=== PATIENT | female | born 1990 | race Caucasian/White ===

== ENCOUNTER 2024-10-31 16:06 | Outpatient (REF) | payer OTHER, SELFPAY ==
--- OUTSIDE RECORDS SUMMARY | 2024-10-31 16:13 | XMS_ITS | Encounter Summary ---
Author Organization [employer] Address [address] [facility] [address] [address] Care Team Providers Care Pipe Production Worker Name Role Phone Priya Capellan MD Primary Care Provider [phone]- [phone] Reason for Referral * Consultation (Routine) - Authorized Specialty Diagnoses / Procedures Referred By Contac t Referred To Contact Optometry Diagnoses Wears glasses Priya Capellan MD [address] [place] [address] Phone: tel: fax: [facility] OPTOMETRY [address] [place] [address] Phone: tel: fax: Referral ID Status Reason Start Date Expiration Date Visits Requested Visits Authorized [id number] Authorized Consult and Treat 10/31/2024 10/31/2025 1 1 Reason for Visit * Reason Comments CHW - New Patient Assistance Encounter Details Date Type Department Care Team (Latest Contact Info) Description 10/31/2024 11:00 AM EDT Office Visit [facility] MEDICINE [address] [place] [phone] Priya Capellan MD [address] [place] [phone] Mild intermittent asthma without complication (Primary Dx); Attention deficit hyperactivity disorder (ADHD), unspecified ADHD type; Gastroesophageal reflux disease, unspecified whether esophagitis present; PCOS (polycystic ovarian syndrome); Mood disorder (CMS/HCC); Family planning; Hearing loss, unspecified hearing loss type, unspecified laterality; Wears glasses; Routine screening for STI (sexually transmitted infection); Other specified health status Social History Tobacco Use Types Packs/Day Years Used Date Smoking Tobacco: Never Passive Smoke Exposure: Never Smokeless Tobacco: Never Tobacco Cessation:Counseling Given: Not Answered Depression Answer Date Recorded Patient Health Questionnaire-9 Score 24 10/31/2024 Patient Health Questionnaire-9 Score 24 10/31/2024 Last PHQ-9: Questionnaire Data Not on file 0 10/31/2024 Housing Stability Answer Date Recorded What is your housing situation today? I have housing today, but I am worried about losing housing in the future 10/31/[address] you li ve. Do you have problems with any of the following? Pests such as bugs, ants, or mice;Mold;Water leaks 10/31/2024 Food Insecurity Answer Date Recorded Within the past 12 months, y ou worried that your food would run out before you got money to buy more: Sometimes True 2024 Within the past 12 months,th e food you bought just didn't last and you didn't have enough money to get more: Sometimes True 10/31/2024 Transportation Answer Date Recorded In the past 12 months, has l ack of transportation kept you from medical appts, meetings, work or from getting things needed for daily living? Yes, it has kept me from non-medical meetings, work, or getting things that I need 10/31/2024 Utilities Answer Date Recorded In the past 12 months, has t he electric, gas, oil or water company threatened to shut off services in your home? Yes 10/31/2024 Depression Answer Date Recorded Patient Health Questionnaire-2 Score 5 10/31/2024 Internet Access Answer Date Recorded Internet Access Q1 Yes 10/31/2024 Internet Access Q2 Not on file 10/31/2024 Comments Unknown Sex and Gender Information Value Date Recorded Sex Assigned at Female 09/10/2024 2:57 PM EDT Legal Sex Female 2:54 PM EDT Gender Identity Female 09/10/2024 2:57 PM EDT Sexual Orientation Straight 10/23/2024 3 :55 PM EDT documented as of this encounter Last Filed Vital Signs Vital Sign Reading Time Taken Comments Blood Pressure 106/65 10/31/2024 10:54 AM EDT Pulse 60 10/31/2024 10:54 AM EDT Temperature 36.4 ??C (97.5 ??F) 10/31/2024 10:54 AM E DT Respiratory Rate 20 10/31/2024 10:54 AM EDT Oxygen Saturation 100% 10/31/2024 10:54 AM EDT Inhaled Oxygen Concentration - - Weight 52.2 kg (115 lb) 10/31/2024 10:54 AM EDT Height 160 cm (5' 3 ) 10/31/2024 10:54 AM EDT Body Mass Index 20.37 10/31/2024 10:54 AM EDT documented in this encounter Functional Status * Over the past 2 weeks, how often have you been bothered by any of the following problems? Question Answer Date of Assessment Author Patient Health Questionnaire-2 Score 5 10/16 12:12 PM EDT Neva Archer MA * Little interest or pleasure in doing things Answer Date of Assessment Author More than half the days 10/31/2024 12:12 PM EDT Neva Archer MA * Feeling down, depressed, or hopeless Answer Date of Assessment Author Nearly every day 10/31/2024 12:12 PM EDT Neva Archer MA * Trouble falling or staying asleep, or sleeping too much Answer Date of Assessment Author Nearly every day 10/31/2024 12:12 PM EDT Neva Archer MA * Feeling tired or having little energy Answer Date of Assessment Author More than half the days 10/31/2024 12:12 PM EDT Neva Archer MA * Poor appetite or overeating Answer Date of Assessment Author Nearly every day 10/31/2024 12:12 PM EDT Neva Archer MA * Feeling bad about yourself - or that you are a failure or have let yourself or your family down Answer Date of Assessment Author Nearly every day 10/31/2024 12:12 PM EDT Neva Archer MA * Trouble concentrating on things, such as reading the newspaper or watching television Answer Date of Assessment Author Nearly every day 10/31/2024 12:12 PM EDT Neva Archer MA * Moving or speaking so slowly that other people could have noticed? Or the opposite - being so fidgety or restless that you have been moving around a lot more than usual. Answer Date of Assessment Author Nearly every day 10/31/2024 12:12 PM EDT Neva Archer MA * Thoughts that you would be better off or hurting yourself in some way Answer Date of Assessment Author More than half the days 10/31/2024 12:12 PM EDT Neva Archer MA * Patient Health Questionnaire-9 Score Answer Date of Assessment Author 24 10/31/2024 12:12 PM EDT Neva Archer MA * How difficult have these problems made it for you to do your work, take care of things at home, or get along with other people? Answer Date of Assessment Author Very difficult 10/31/2024 12:12 PM EDT Neva Archer MA * Over the last 2 weeks, how often have you been bothered by any of the following problems? Question Answer Date of Assessment Author Feeling nervous, anxious, or on edge 3 10/16 12:13 PM EDT Neva Archer MA Not being able to stop or co ntrol worrying 3 10/31/2024 12:13 PM EDT Neva Archer MA Worrying too much about diff erent things 3 10/31/2024 12:13 PM EDT Neva Archer MA Trouble relaxing 3 10/31/2024 12:13 PM EDT Neva Archer MA Being so restless that it is hard to sit still 2 10/31/2024 12:13 PM EDT Neva Archer MA Becoming easily annoyed or irritable 3 10/16 12:13 PM EDT Neva Archer MA Feeling afraid as if somethi ng awful might happen 3 10/31/2024 12:13 PM EDT Neva Archer MA NITIN-7 Total Score 20 10/31/2024 12:13 PM EDT Neva Archer MA documented as of this encounter Miscellaneous Notes * Assessment & Plan Note - Sujey Goldstein - 10/31/2024 11:56 AM EDTAssociated Problem(s): Other specified health status -next comprehensive annual evaluation due after 10/31/25 -referred to [facility] 10/31/24 -dental home encouraged. -royce care proxy given and filed 10/31/24 * Assessment & Plan Note - Sujey Goldstein - 10/31/2024 11:56 AM EDTAssociated Problem(s): Mood disorder (CMS/HCC) Reports difficulty with mood, was on Prozac but had side effects and used to see a therapist. Has adeaf support group. -recommended searching for deaf therapist per pt's preference. * Assessment & Plan Note - Sujey Goldstein - 10/31/2024 11:55 AM EDTAssociated Problem(s): PCOS (polycystic ovarian syndrome) Per BEAM PRESS OPERATOR note from 12/29/20, dx'd with PCOS (irreg periods and multicystic ovaries on u/s). -ordered labs 10/31/24 * Assessment & Plan Note - Sujey Goldstein - 10/31/2024 11:55 AM EDTAssociated Problem(s): Gastroesophageal reflux disease famotidine (PEPCID) 20 MG tablet Take 20 mg by mouth 2 (two) times a day. (patient-reported) * Assessment & Plan Note - Sujey Goldstein - 10/31/2024 11:54 AM EDTAssociated Problem(s): Attention deficit hyperactivity disorder (ADHD) Since [age] yo. Not currently seeing a therapist. Not on any medications. Was recommended Buspirone 5mg previously. Agrees to try today. -prescribed busPIRone (Buspar) 5 MG 10/31/24 * Assessment & Plan Note - Sujey Goldstein - 10/31/2024 11:44 AM EDTAssociated Problem(s): Hearing loss Has implants. Does use [place] Sign Language. * Assessment & Plan Note - Sujey Goldstein - 10/31/2024 11:40 AM EDTAssociated Problem(s): Mild intermittent asthma without complication - continue albuterol 108 (90 Base) MCG/ACT inhaler * Assessment & Plan Note - Sujey Goldstein - 10/31/2024 11:27 AM EDTAssociated Problem(s): Family planning -pt does not desire within the next 12 months. -discussed efficacies, benefits and risks of available contraceptive means available including IUD,subdermal implantable device, injection, combination oral contraceptives, patch, vaginal ring and condoms. -patient declines. -indications for Prep discussed. -condoms offered. -Plan B offered, prescribed levonorgestrel (Plan B) 1.5 MG documented in this encounter Plan of Treatment Upcoming Encounters Date Type Department Care Team (Late st Contact Info) Description 12/17/2024 2:45 PM EDT Office Visit [facility] MEDICINE [address] [place] [phone] Priya Capellan MD [address] [place] [address] Scheduled Orders Name Type Priority Associated Diagnoses Orde r Schedule Testosterone, Total, males (Adult), IA Lab Routine PCOS (polycystic ovarian syndrome) Expected: 10/31/2024, Expires: 10/31/2025 DHEA Sulfate Lab Routine PCOS (polycystic ovarian syndrome) Expected: 10/31/2024 (Approximate), Expires: 10/31/2025 Chlamydia/N. Gonorrhoeae RNA, TMA, Vagina Microbiology Routine Routine screening for STI (sexually transmitted infection) Ordered: 10/31/2024 HIV-1/2 Antigen and Antibodies, Fourth Generation, with Reflexes Lab Routine Routine screening for STI (sexually transmitted infection) Expected: 10/31/2024 (Approximate), Expires: 10/31/2025 Hepatitis C Antibody with Reflex to HCV, RNA, Quantitative, Real-Time PCR Lab Routine Routine screening for STI (sexually transmitted infection) Expected: 10/31/2024 (Approximate), Expires: 10/31/2025 Syphilis Screen Lab Routine Routine screening for STI (sexually transmitted infection) Expected: 10/31/2024 (Approximate), Expires: 10/31/2025 Hepatic Function Panel Lab Routine PCOS (polycystic ovarian syndrome) Expected: 10/31/2024, Expires: 10/31/2025 Lipid Panel, Standard Lab Routine PCOS (polycystic ovarian syndrome) Expected: 10/31/2024, Expires: 10/31/2025 Basic Metabolic Panel Lab Routine PCOS (polycystic ovarian syndrome) Expected: 10/31/2024, Expires: 10/31/2025 TSH with Reflex to Free T4 Lab Routine PCOS (polycystic ovarian syndrome) Expected: 10/31/2024 (Approximate), Expires: 10/31/2025 CBC auto differential Lab Routine PCOS (polycystic ovarian syndrome) Expected: 10/31/2024, Expires: 10/31/2025 Vitamin D, 25-Hydroxy, Total, Immunoassay Lab Routine PCOS (polycystic ovarian syndrome) Expected: 10/31/2024 (Approximate), Expires: 10/31/2025 Scheduled Referrals Name Type Priority Associated Diagnoses Orde r Schedule Referral to [facility] Eye Care Outpatient Referral Routine Wears glasses Expected: 10/31/2024 (Approximate), Expires: 10/31/2025 documented as of this encounter Visit Diagnoses Diagnosis Mild intermittent asthma without complication- Primary Attention deficit hyperactivity disorder (ADHD), unspecified ADHD type Gastroesophageal reflux disease, unspecified whether esophagitis present PCOS (polycystic ovarian syndrome) Polycystic ovaries Mood disorder (CMS/HCC) Unspecified episodic mood disorder Family planning Other general counseling and advice for contraceptive management Hearing loss, unspecified hearing loss type, unspecified laterality Wears glasses Other specified conditions influencing health status Routine screening for STI (sexually transmitted infection) Screening examination for venereal disease Other specified health status documented in this encounter Additional Health Concerns Assessment Noted Time PHQ-9 Depression Total Score: 24 025 12:12 PM EDT documented as of this encounter Care Teams Pipe Production Worker Relationship Specialty Start Date End Date Priya Capellan MD [address] [place] [address] PCP - General Family Medicine 09/11/24 documented as of this encounter
--- OUTSIDE RECORDS SUMMARY | 2024-10-31 16:13 | XMS_ITS | Clinical Summary ---
Author Organization [employer] Address [address] [place] [address] Care Team Providers Care Smalltalk Developer Name Role Phone Priya Capellan MD Primary Care Provider +1- [phone] Allergies No known active allergies Medications albuterol 108 (90 Base) MCG/ACT inhalerIndication s:Mild intermittent asthma without complication Inhale 2 puffs every 4 (four) hours if needed for wheezing. 18 g 5 11/01/19 26 Active levonorgestrel (Plan B) 1.5 MG tabletIndications :Family planning Take 0.5 tablets (0.75 mg) by mouth every 12 (twelve) hours for 1 day. 1 tablet 5 11/02/19 25 Active busPIRone (Buspar) 5 MG tablet Take 1 tablet (5 mg) by mouth 2 times daily. 60 tablet 3 5 11/01/19 26 Active Active Problems Problem Noted Date Diagnosed Date PCOS (polycystic ovarian syndrome) 10/31/2024 Overview (10/31/2024): Per DRYWALL INSTALLER note from 12/29/20, dx'd with PCOS (irreg periods and multicystic ovaries on u/s). -ordered labs 10/31/24 Assessment & Plan (10/31/2024 11:55 AM EDT): Per DRYWALL INSTALLER note from 12/29/20, dx'd with PCOS (irreg periods and multicystic ovaries on u/s). -ordered labs 10/31/24 Hearing loss 10/31/2024 Overview (10/31/2024): Has implants. Does use Beninese Sign Language. Assessment & Plan (10/31/2024 11:44 AM EDT): Has implants. Does use [place]inese Sign Language. Family planning 10/31/2024 Overview (10/31/2024): -pt does not desire within the next 12 months. -discussed efficacies, benefits and risks of available contraceptive means available including IUD, subdermal implantable device, injection, combination oral contraceptives, patch, vaginal ring and condoms. -patient declines. -indications for Prep discussed. -condoms offered. -Plan B offered, prescribed levonorgestrel (Plan B) 1.5 MG Assessment & Plan (10/31/2024 11:55 AM EDT): -pt does not desire within the next 12 months. -discussed efficacies, benefits and risks of available contraceptive means available including IUD, subdermal implantable device, injection, combination oral contraceptives, patch, vaginal ring and condoms. -patient declines. -indications for Prep discussed. -condoms offered. -Plan B offered, prescribed levonorgestrel (Plan B) 1.5 MG Gastroesophageal reflux disease 10/31/2024 Overview (10/31/2024): famotidine (PEPCID) 20 MG tablet Take 20 mg by mouth 2 (two) times a day. (patient-reported) Assessment & Plan (10/31/2024 11:55 AM EDT): famotidine (PEPCID) 20 MG tablet Take 20 mg by mouth 2 (two) times a day. (patient-reported) Chronic pain of right knee 10/31/2024 Other specified health status 10/31/2024 Overview (10/31/2024): -next comprehensive annual evaluation due after 10/31/25 -referred to [facility] 10/31/24 -dental home encouraged. -royce care proxy given and filed 10/31/24 Assessment & Plan (10/31/2024 11:56 AM EDT): -next comprehensive annual evaluation due after 10/31/25 -referred to [facility] 10/31/24 -dental home encouraged. -royce care proxy given and filed 10/31/24 Attention deficit hyperactivity disorder (ADHD) 10/31/2024 Overview (10/31/2024): Since 6/7 yo. Not currently seeing a therapist. Not on any medications. Was recommended Buspirone 5mg previously. Agrees to try today. -prescribed busPIRone (Buspar) 5 MG 10/31/24 Assessment & Plan (10/31/2024 11:54 AM EDT): Since 6/7 yo. Not currently seeing a therapist. Not on any medications. Was recommended Buspirone 5mg previously. Agrees to try today. -prescribed busPIRone (Buspar) 5 MG 10/31/24 Mild intermittent asthma without complication Overview (10/31/2024): - continue albuterol 108 (90 Base) MCG/ACT inhaler Assessment & Plan (10/31/2024 11:40 AM EDT): - continue albuterol 108 (90 Base) MCG/ACT inhaler Mood disorder 10/31/2024 Overview (10/31/2024): Reports difficulty with mood, was on Prozac but had side effects and used to see a therapist. Has a deaf support group. -recommended searching for deaf therapist per pt's preference. Assessment & Plan (10/31/2024 11:56 AM EDT): Reports difficulty with mood, was on Prozac but had side effects and used to see a therapist. Has a deaf support group. -recommended searching for deaf therapist per pt's preference. Encounters Date Type Department Care Team Description 10/31/2024 11:00 AM EDT Office Visit [address] [address] Priya Capellan MD Mild intermittent asthma without complication (Primary Dx); Attention deficit hyperactivity disorder (ADHD), unspecified ADHD type; Gastroesophageal reflux disease, unspecified whether esophagitis present; PCOS (polycystic ovarian syndrome); Mood disorder (CMS/HCC); Family planning; Hearing loss, unspecified hearing loss type, unspecified laterality; Wears glasses; Routine screening for STI (sexually transmitted infection); Other specified health status 10/31/2024 Patient Outreach [address] [address] Priya Caepllan MD Care Coordination ([facility] outreach for SDOH PT-1 and food needs-LVM ) 10/31/2024 Travel 10/30/[address] [address] Priya Capellan MD CHART PREP 10/24/2024 Patient Outreach [facility] [address] [place], [place] [phone] Priya Capellan MD Pre-visit Planning ([facility] unable to reach [facility]) 10/13/[address] [address] Yany Duran RN 09/29/[address] [phone] Priya Capellan MD Appt cancel 10/30/2024 (I book the appt on 10/31/2024 at 10:45 am for New Patient. I will sent a reminder.) 09/29/2024 Travel 09/10/[address] [address] José Blue MD New Patient Request from Last 3 Months Social History Tobacco Use Types Packs/Day Years [...] 2:57 PM EDT Sexual Orientation Straight 10/23/2024 3: 55 PM EDT Last Filed Vital Signs Vital Sign Reading [...] Mass Index 20.37 10/31/2024 10:54 AM EDT Plan of Treatment Upcoming Encounters Date Type Department Care Team (Late st Contact Info) Description 12/17/2024 2:45 PM EDT Office Visit [facility] [address] [facility] [place] [address] Priya [facility]an MD [address] [facility] [place] [address] Health Maintenance Due Date Last Done Comments HIV Screening 1992 Alcohol/Substance Use Screening 2004 Family Planning (PISQ) 11/24/2007 Hepatitis C Screening 2010 Hepatitis B Vaccines (1 of 3 - 19+ 3-dose series) 11/24/2011 Pneumococcal Vaccine: Pediatrics (0 to 5 Years) and At-Risk Patients (6 to 49) Years) (1 of 2 - PCV) 11/24/2011 Pap Smear 2013 Cervical Cancer Screening 2022 HPV/Cotest 2022 COVID-19 Vaccine (4 - 2023-2 5 season) 2024 06/15/2021, 11/16/2020, 10/15/2020 Influenza Vaccine (#1) 2024 03/18/2021 Depression Screening 10/31/2025 10/31/2024, 10/31/2024 SDOH Screening 10/31/2025 10/31/2024 Tobacco Screening 10/31/2025 10/31/2024 DTaP/Tdap/Td Vaccines (2 - T d or Tdap) 11/05/2031 11/04/2021 Zoster Vaccines (1 of 2) 2042 RSV Patients and Patients Aged 60 years or older (1 - 1-dose 75+ series) 11/24/2067 HIB Vaccines Aged Out No longer eligi ble based on patient's age to complete this topic HPV Vaccines Aged Out No longer eligi ble based on patient's age to complete this topic Hepatitis A Vaccines Aged Out No long er eligible based on patient's age to complete this topic IPV Vaccines Aged Out No longer eligi ble based on patient's age to complete this topic Meningococcal B Vaccine Aged Out No l onger eligible based on patient's age to complete this topic Meningococcal Vaccine Aged Out No juan luz eligible based on patient's age to complete this topic RSV under 20 months Aged Out No longe r eligible based on patient's age to complete this topic Rotavirus Vaccines Aged Out No longer eligible based on patient's age to complete this topic Insurance HS FULL Care Teams Smalltalk Developer Relationship Specialty Start Date End Date Macoupin, MD Priya [address] [place] [phone] PCP - General Family Medicine 09/11/24
--- OUTSIDE RECORDS SUMMARY | 2024-10-31 16:13 | XMS_ITS | Encounter Summary ---
Author Organization [employer] Address [address] [place] [address] Care Team Providers Care Construction Millwright Name Role Phone Priya Capellan MD Primary Care Provider +1- [phone] Reason for Visit * Reason Onset Date Comments CHART PREP 10/30/2024 Encounter Details Date Type Department Care Team ([facility] st Contact Info) Description 10/30/2024 Telephone [facility] [address] [place], [place] [phone] Priya Capellan MD [address] [place], [place] [phone] CHART PREP Social History Tobacco Use Types Packs/Day Years Used Date Smoking Tobacco: Never Assessed Depression Answer Date Recorded Patient Health Questionnaire-9 [...] Orientation Straight 10/23/2024 3: 55 PM EDT documented as of this encounter Miscellaneous Notes * Telephone Encounter - Nidhi López MA - 10/30/2024 10:43 AM EDT Chart Prep Labs: not applicable Images: not applicable Referrals: not applicable Vaccines due: Hep B Screenings: pap smear and LMP Overdue care gaps: SBIRT, SDOH, PHQ-9, NITIN-7, Oral health screening, Disability screen, and Tobacco documented in this encounter Plan of Treatment Upcoming Encounters Date Type Department Care Team (Late st Contact Info) Description 12/17/2024 2:45 PM EDT Office Visit [facility] [address] [place] [address] Priya Capellan MD [address] [place] [address] documented as of this encounter Visit Diagnoses Not on filedocumented in this encounter Care Teams Construction Millwright Relationship Specialty Start Date End Date Priya Capellan MD [address] [place] [phone] PCP - General Family Medicine 09/11/24 documented as of this encounter
--- OUTSIDE RECORDS SUMMARY | 2024-10-31 16:13 | XMS_ITS | Encounter Summary ---
Author Organization [employer] Address [address] [place] [address] Care Team Providers Care Director Social Name Role Phone Priya Capellan MD Primary Care Provider [phone] Reason for Visit * Reason Comments Care Coordination CHW outreach for SDO H PT-1 and food needs-LVM Encounter Details Date Type Department Care Team (Latest Contact Info) Description 10/31/2024 Patient Outreach [facility] [address] [place] [id number] Priya Capellan MD [address] [place] [address] Care Coordination (CHW outreach for SDOH PT-1 and food needs-LVM ) Social History Tobacco Use Types Packs/Day Years Used Date Smoking Tobacco: Never Passive Smoke Exposure: Never Smokeless Tobacco: Never Depression Answer Date Recorded Patient Health Questionnaire-9 [...] PM EDT documented as of this encounter Functional Status * Over the [...] awful might happen 3 10/31/2024 12:13 PM SARAHT Neva Archre MA NITIN-7 Total Score 20 10/31/2024 12:13 PM EDT Neva Archer MA documented as of this encounter Progress Notes * Axel Olmedo - 10/31/2024 12:52 PM EDT CHW Axel Olmedo, placed outbound call to patient for assistance with SDOH as a referral was placed by the provider. Patient had screened positive for the following SDOH housing insecurities. Patient did not answer at this time. Patient's name and were not confirmed. CHW left detailed message and provided contact information requesting return call for more assistance. documented in this encounter Plan of Treatment Upcoming Encounters Date Type Department Care Team ([facility] st Contact Info) Description 12/17/2024 2:45 PM EDT Office Visit [facility] [address] [place] [address] Priya Capellan MD [address] [place] [address] documented as of this encounter Visit Diagnoses Not on filedocumented in this encounter Additional Health Concerns Assessment Noted Time PHQ-9 Depression Total Score: 24 025 12:12 PM EDT documented as of this encounter Care Teams Director Social Relationship Specialty Start Date End Date Priya Capellan MD [address] [place] [address] PCP - General Family Medicine 09/11/24 documented as of this encounter
--- OUTSIDE RECORDS SUMMARY | 2024-10-31 16:13 | XMS_ITS | Continuity of Care Document ---
Author Organization [facility] Address [address] [phone] Phone Care Team Providers Care Dance Teacher Name Role Phone Joshua Rashid PA-C Unavailable Unavailable Allergies, Adverse Reactions, Alerts Substance Reaction Status Criticality No Known Allergies Active No Inform ation Medications Medication Instructions Dosage Effective Dates (start - stop) Status Comments Xyzal 5 mg tablet take 1 tablet by ora l route every day in the evening 5 MG - Active Prozac 20 mg capsule take 1 capsule by o ral route every day in the morning 20 MG - Active multivitamin tablet - Active Procedures Procedure Date Office/Outpatient Visit, [facility] Advance Directives Directive Yes / No Effective Date File Name No Information Encounters Encounter Description Practice Location Reason(s) For Visit Diagnoses Date Provider Providers Copied on Encounter Office/Outpa tient Visit, [facility], [address] [place], [place], [address] [place] [address] , tel:[phone] Rachid TMJ dysfunction (chief complaint) TMJ dysfunctionAllergi c rhinitis, unspecified seasonality, unspecified triggerHearing difficulty of both ears 0 Rachid Lewis. [address] [place], [place], [address] [place] [address] , . tel:[phone] Referring Provider: Yesica Morales NP, [facility] [address] [place] [address], [address]. tel:[phone] Family History Family Member Type Diagnosis Age At Onset Sister Problem (finding) Hearing Loss Brother Problem (finding) Environmental Allergies Sister Problem (finding) Alive and Doing Well Mother Problem (finding) Alive and Doing Well Brother Problem (finding) Alive and Doing Well Father Problem (finding) Alive and Doing Well Payers Payer name Insurance type Covered republican ID Trevor egan(s) [employer] CARD [id number] Social History Type Description Quantity Date Captured Comments Alcohol Use Details Caffeine Use Details tea and tablets 0 Tobacco Use Status Current non-smoker 20 Smoking Status Never smoker Non-Smoking Tobacco Use Details : No Details Available : No Details Available Sex Female Vital Signs Date / Time: Height Weight BMI Pulse Rate Blood Pressure Temperature Respiratory Rate Body Surface Area Head Circumference Head Circ. Percentile Wt./[place]. Percentile BMI percentile Pulse Ox Inhaled Ox 11:26 AM 63.00 in 54.431 kg (120.00 lbs) 21.2 6 kg/m eter (2) 97.10 F 1.56 meter(2) Chief Complaint And Reason For Visit From encounter dated '02/17/2020 11:00'. TMJ dysfunction (chief complaint). Description: The symptoms began 1 year ago. The symptoms are reported as being moderate. The symptoms occur constantly. Relieving factors include Ibuprofen. She states the symptoms are chronic. 29-year-old female patient presents to the office with a history of left-sided jaw pain as well as ear pain. Patient states she has a history of TMJ dysfunction, as does her mother. Patient was seen by PCP several weeks ago were she was told she had fluid behind left TM. Patient was given Zyrtec D as treatment. Patient states she no longer has fluid behind left TM andhas felt significantly better, but does frequently gets bouts of jaw pain on the left side. Patientdenies history of seasonal allergies, but states she does get occasional nasal congestion/obstruction, sneezing, itchy/watery eyes. Patient presents to the office today for evaluation regarding jaw pain as well as history of fluid behind TM.Of note, handheld tympanometer was utilized with patient today. Tympanograms were type A bilaterally indicating no fluid behind TMs. Patient is hearing impaired, as such audiograms will not be obtained. Reason For Referral Reason For Referral No Information History Of Present Illness Encounter Date Complaint History Of Prese nt Illness TMJ dysfunction The symptoms beg an 1 year ago. The symptoms are reported as being moderate. The symptoms occur constantly. Relieving factors include Ibuprofen. She states the symptoms are chronic. 29-year-old female patient presents to the office with a history of left-sided jaw pain as well as ear pain. Patient states she has a history of TMJ dysfunction, as does her mother. Patient was seen by PCP several weeks ago were she was told she had fluid behind left TM. Patient was given Zyrtec D as treatment. Patient states she no longer has fluid behind left TM and has felt significantly better, but does frequently gets bouts of jaw pain on the left side. Patient denies history of seasonal allergies, but states she does get occasional nasal congestion/obstruction, sneezing, itchy/watery eyes. Patient presents to the office today for evaluation regarding jaw pain as well as history of fluid behind TM.Of note, handheld tympanometer was utilized with patient today. Tympanograms were type A bilaterally indicating no fluid behind TMs. Patient is hearing impaired, as such audiograms will not be obtained. Functional Status Date Functional Assessmen t No Information Instructions Date Instruction Additional Infor mation No Information Assessments Type Assessment Date assessment TMJ dysfunction assessment Allergic rhinitis, u nspecified seasonality, unspecified trigger impression 29-year-old female p atient presents to the office with a history of TMJ dysfunction. Patient states she will frequently get left-sided otalgia that she is associated with jaw pain. Physical exam is significant for popping and clicking of jaw, worse on the left side. Pain is elicited with pressure to TMJ capsule.We discussed supportive treatment for TMJ dysfunction such as use of anti-inflammatories including ibuprofen. We also discussed other supportive measures such as warm packs to the area, as well as gentle jaw stretching. Patient will utilize supportive measures to treat TMJ arthralgia. If pain persists, patient will seek out a TMJ specialist or dentist. impression Physical exam shows pale and congested nasal mucosa, turbinate hypertrophy, and cobblestoning of the oropharynx. Patient also has a history of fluid behind left TM according to her PCP. Tympanogram today were type A bilaterally. There is no fluid behind TM on exam.We discussed allergic rhinitis in depth. Patient will begin Xyzal tablet daily at bedtime. She will also begin Flonase Sensimist (she does not use alcohol-based nasal sprays as she finds them too drying and painful and the nose). I recommended nasal saline irrigations.Patient will utilize this allergy regimen and will follow-up in 12 weeks for reassessment of symptoms. If there is concern for fluid behind TM at follow-up, we will utilize handheld tympanometry to assess her tympanograms. Patient will follow-up in 12 weeks. assessment Hearing difficulty of both ears impression Patient has a histor y of being hearing impaired. She utilizes Syrian sign language and has an electrodynamicist with her at the visit today. Patient Care Teams Name Effective Dates (start - stop) Status Members No Information
--- OUTSIDE RECORDS SUMMARY | 2024-10-31 16:13 | XMS_ITS | Encounter Summary ---
Author Organization [employer] Address [address] [place] [address] Care Team Providers Care Life Sciences Director Name Role Phone Priya Capellan MD Primary Care Provider [phone] Encounter Details Date Type Department Care Team (Latest Contact Info) Description 10/31/2024 Travel Social History Tobacco Use Types Packs/Day Years [...] Archer MA documented as of this encounter Plan of Treatment Upcoming Encounters Date Type Department Care Team (Late st Contact Info) Description 12/17/2024 2:45 PM EDT Office Visit [facility] [address] [place] [address] Priya Capellan MD [address] [place] [address] documented as of this encounter Visit Diagnoses Not on filedocumented in this encounter Additional Health Concerns Assessment Noted Time PHQ-9 Depression Total Score: 24 05/ 025 12:12 PM EDT documented as of this encounter Care Teams Life Sciences Director Relationship Specialty Start Date End Date Priya Capellan MD [address] [place] [address] PCP - General Family Medicine 09/11/24 documented as of this encounter
[2024-11-02 14:49] LABS: CT PCR NOT DETECTED (Not Detect.); NG PCR NOT DETECTED (Not Detect.)
== END 2024-10-31 16:07 | disposition home or self-care (01) ==
LOC: HO.HHCLNP 16:06
PROVIDERS: Visit Provider Family Medicine
DX: Z11.3 Encounter for screening for infections with a predominantly sexual mode of transmission (principal); Z72.89 Other problems related to lifestyle
CPT/HCPCS: 87491; 87591

== ENCOUNTER 2024-11-04 13:54 | Outpatient (REF) | payer OTHER, SELFPAY ==
--- OUTSIDE RECORDS SUMMARY | 2024-11-04 15:14 | XMS_ITS | Encounter Summary ---
Author Organization [employer] Address [address] [place] [address] Care Team Providers Care Activity Director Name Role Phone Priya Capellan MD Primary Care Provider [phone] Reason for Referral * Consultation (Routine) - Closed Specialty Diagnoses / Procedures Referred By Contac t Referred To Contact Optometry Diagnoses Wears glasses Priya Capellan MD [address] [place] [address] Phone: tel: fax: [facility] [address] [place] [address] Phone: tel: fax: Referral ID Status Reason Start Date Expiration Date V isits Requested Visits Authorized [id number] Closed Consult and Treat 10/31/2024 10/31/2025 1 1 Reason for Visit * Reason Comments CHW - New Patient Assistance Encounter Details Date Type Department Care Team (Latest Contact Info) Description 10/31/2024 11:00 AM EDT Office Visit [facility] [address] [place] [phone] Priya Capellan MD [address] [place], [place] [phone] Mild intermittent asthma without complication (Primary Dx); Attention deficit hyperactivity disorder (ADHD), unspecified ADHD type; Gastroesophageal reflux disease, unspecified whether esophagitis present; PCOS (polycystic ovarian syndrome); Mood disorder (CMS/HCC); Family planning; Bilateral deafness; Wears glasses; Routine screening for STI (sexually [...] as of this encounter Progress Notes * Priya Capellan MD - 10/31/2024 11:00 AM EDT Julien Marshall is a 33 y.o. female who presents to the office today for new patient intake and comprehensive annual evaluation. Jordanian Sign Language used during visit. Pt reports she grew up in [place], [place]. She moved to [place]. She notes medical history of ADHD(since 6/7 yo), PCOS, and acid reflux. Denies any other medical problems. She reports right knee pain with weight bearing for the past year and a half. Pt reports she has hypoglycemia when she fasts for blood draws. 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 Needs some medication prior. She reports she was only on control for her PCOS. Denies any other medication. Reports difficulty with mood, was on Prozac but had side effects and used to see a therapist. Interested in new therapist. Social History Tobacco: reports vaping, sometimes, does not have her own vape. No cigarettes. Drugs: marijuana Alcohol: on rare social occassions Sexuality: Denies current penetrative sexual activity. Used to have ring, had removal due to side effects. Has 2 partners, one male, one female. Suicide/Depression: Current depressive symptoms include: Mood disturbance, characterized by anxietyand stress. Review of Systems Constitutional: Negative for fatigue, fever and unexpected weight change. Respiratory: Negative for cough. Cardiovascular: Negative for chest pain. Gastrointestinal: Negative for abdominal pain. Genitourinary: Negative for difficulty urinating. Musculoskeletal: Positive for arthralgias. Current Medications[1] Allergies[2] Medical History[3] Surgical History[4] Family History[5] Objective Visit Vitals BP 106/65 (BP Location: Left arm, Patient Position: Sitting, BP Cuff Size: Adult) Pulse 60 Temp 97.5 ??F (36.4 ??C) (Temporal) Resp 20 Ht 5' 3 (1.6 m) Wt 115 lb (52.2 kg) SpO2 100% BMI 20.37 kg/m?? Smoking Status Never BSA 1.52 m?? Physical Exam Constitutional: Appearance: Normal appearance. HENT: Head: Normocephalic. Right Ear: Tympanic membrane normal. Left Ear: Tympanic membrane normal. Mouth/Throat: Pharynx: Oropharynx is clear. Eyes: Pupils: Pupils are equal, round, and reactive to light. Cardiovascular: Rate and Rhythm: Normal rate and regular rhythm. Heart sounds: Normal heart sounds. Pulmonary: Effort: Pulmonary effort is normal. Breath sounds: Normal breath sounds. Abdominal: General: Abdomen is flat. Palpations: There is no mass. Tenderness: There is no abdominal tenderness. Musculoskeletal: General: Normal range of motion. Cervical back: Normal range of motion and neck supple. Lymphadenopathy: Cervical: No cervical adenopathy. Skin: General: Skin is warm and dry. Neurological: General: No focal deficit present. Mental Status: She is alert. Psychiatric: Behavior: Behavior normal. 33 y.o. female annual evaluation. Problem List Items Addressed This Visit Mild intermittent asthma without complication - Primary - continue albuterol 108 (90 Base) MCG/ACT inhaler Relevant Medications albuterol 108 (90 Base) MCG/ACT inhaler Attention deficit hyperactivity disorder (ADHD) Since 6/7 yo. Not currently seeing a therapist. Not on any medications. Was recommended Buspirone 5mg previously. Agrees to try today. -prescribed busPIRone (Buspar) 5 MG 10/31/24 Relevant Medications busPIRone (Buspar) 5 MG tablet Gastroesophageal reflux disease famotidine (PEPCID) 20 MG tablet Take 20 mg by mouth 2 (two) times a day. (patient-reported) PCOS (polycystic ovarian syndrome) Per INSTALLATION AND REPAIR TECHNICIAN note from 12/29/20, dx'd with PCOS (irreg periods and multicystic ovaries on u/s). -ordered labs 10/31/24 Relevant Orders Testosterone, Total, males (Adult), IA DHEA Sulfate Hepatic Function Panel Lipid Panel, Standard Basic Metabolic Panel TSH with Reflex to Free T4 CBC auto differential Vitamin D, 25-Hydroxy, Total, Immunoassay Mood disorder (CMS/HCC) Reports difficulty with mood, was on Prozac but had side effects and used to see a therapist. Has adeaf support group. -recommended searching for deaf therapist per pt's preference. Relevant Medications busPIRone (Buspar) 5 MG tablet Family planning -pt does not desire within the next 12 months. -discussed efficacies, benefits and risks of available contraceptive means available including IUD,subdermal implantable device, injection, combination oral contraceptives, patch, vaginal ring and condoms. -patient declines. -indications for Prep discussed. -condoms offered. -Plan B offered, prescribed levonorgestrel (Plan B) 1.5 MG Bilateral deafness -Patient needs general science teacher for all visits. Please make note of this in any referrals. -has cochlear implants b/l Other specified health status -next comprehensive annual evaluation due after 10/31/25 -referred to [facility] 10/31/24 -dental home encouraged. -royce care proxy given and filed 10/31/24 Other Visit Diagnoses Wears glasses Relevant Orders Referral to [facility] Routine screening for STI (sexually transmitted infection) Relevant Orders Chlamydia/N. Gonorrhoeae RNA, TMA, Vagina (Completed) HIV-1/2 Antigen and Antibodies, Fourth Generation, with Reflexes Hepatitis C Antibody with Reflex to HCV, RNA, Quantitative, Real-Time PCR Syphilis Screen Annual Evaluation -Normal growth and development. -Anticipatory guidance discussed. -Preventative care / harm reduction discussed. Follow up for Next scheduled follow-up. Future Appointments Date Time Provider Department Center 12/17/2024 2:45 PM Priya Capellan MD MEDICINE [facility] ISujey, am serving as a scribe to document services personally performed by Dr. Norman, based on the patient's response to questions by provider and providers statements to me. [1] Current Outpatient Medications: albuterol 108 (90 Base) MCG/ACT inhaler, Inhale 2 puffs every 4 (four) hours if needed for wheezing., Disp: 18 g, Rfl: 0 busPIRone (Buspar) 5 MG tablet, Take 1 tablet (5 mg) by mouth 2 times daily., Disp: 60 tablet, Rfl:3 [2] No Known Allergies [3] Past Medical History: Diagnosis Date Attention deficit hyperactivity disorder (ADHD) 10/31/2024 Since 6/7 yo. Not currently seeing a therapist. Not on any medications. Was recommended Buspirone 5mg previously. Agrees to try today. -prescribed busPIRone (Buspar) 5 MG 10/31/24 Gastroesophageal reflux disease 10/31/2024 famotidine (PEPCID) 20 MG tablet Take 20 mg by mouth 2 (two) times a day. (patient-reported) [4] No past surgical history on file. [5] No family history on file. documented in this encounter Miscellaneous Notes * Assessment & Plan Note - Sujey Goldstein - 10/31/2024 11:56 AM EDTAssociated Problem(s): Other specified health status -next comprehensive annual evaluation due after 10/31/25 -referred to [facility] 10/31/24 -dental home encouraged. [...] EDTAssociated Problem(s): PCOS (polycystic ovarian syndrome) Per INSTALLATION AND REPAIR TECHNICIAN note from 12/29/20, dx'd with PCOS (irreg [...] Goldstein - 10/31/2024 11:44 AM EDTAssociated Problem(s): Bilateral deafness -Patient needs general science teacher for all visits. Please make note of this in any referrals. -has cochlear implants b/l * Assessment & Plan Note - Sujey [...] Description 12/17/2024 2:45 PM EDT Office Visit [facility] [address] [place] [address] Priya Capellan MD [address] [place] [address] 03/17/2025 1:45 PM EDT Office Visit [facility] [address] [place] [address] Cat Londono, OD [address] [place] [address] Scheduled Orders Name Type Priority Associated Diagnoses Orde r Schedule Testosterone, Total, males (Adult), IA Lab Routine PCOS (polycystic ovarian syndrome) Expected: 10/31/2024, Expires: 10/31/2025 DHEA Sulfate Lab Routine PCOS (polycystic ovarian syndrome) Expected: 10/31/2024 (Approximate), Expires: 10/31/2025 HIV-1/2 Antigen and Antibodies, Fourth Generation, with [...] Associated Diagnoses Orde r Schedule Referral to [facility] Outpatient Referral Routine Wears glasses Expected: 10/31/2024 (Approximate), Expires: 10/31/2025 documented as of this encounter Procedures Procedure Name Priority Date/Time Associated Diagnosis Comments CHLAMYDIA/N. GONORRHOEAE RNA, TMA, UROGENITAL Routine 10/31/2024 11:58 AM EDT Routine screening for STI (sexually transmitted infection) documented in this encounter Results * Chlamydia/N. Gonorrhoeae RNA, TMA, Vagina (10/31/2024 11:58 AM EDT) CT PCR NOT DETECTED Not Detect. [facility] Comment:A not detected test result does not exclude the possibilityof infection because test results can be affected byimproper specimen collection, concurrent antibiotic therapy,or the number of organisms in the specimen which may bebelow the sensitivity of the test. As with many diagnostictests, results from the Xpert CT/NG assay should beinterpreted in conjunction with other laboratory andclinical data available to the clinician.Xpert CT/NG performance has not been evaluated in patientsless than 14 years of age. The assay should not be used forthe evaluationof suspected sexual abuse or for other medico-legalindications. Additional testing is recommended in anycircumstance when false positive or false negative resultscould lead to adverse medical, social or psychologicalconsequences. NG PCR NOT DETECTED Not Detect. [facility] Comment:A not detected test result does not exclude the possibilityof infection because test results can be affected byimproper specimen collection, concurrent antibiotic therapy,or the number of organisms in the specimen which may bebelow the sensitivity of the test. As with many diagnostictests, results from the Xpert CT/NG assay should beinterpreted in conjunction with other laboratory andclinical data available to the clinician.Xpert CT/NG performance has not been evaluated in patientsless than 14 years of age. The assay should not be used forthe evaluationof suspected sexual abuse or for other medico-legalindications. Additional testing is recommended in anycircumstance when false positive or false negative resultscould lead to adverse medical, social or psychologicalconsequences. Swab Vaginal structure / Unknown 10/31/2024 11:58 AM EDT 10/31/2024 4:12 PM EDT Narrative [facility] - 11/02/2024 2:49 PM EDT Vaginal us Priya Capellan MD LAB MICROBIOLOGY - GENERAL ORDERABLES Final Result [facility] [address] [place] [phone] documented in this encounter Visit Diagnoses Diagnosis Mild intermittent asthma without complication- Primary Attention deficit hyperactivity disorder (ADHD), unspecified ADHD type Gastroesophageal reflux disease, unspecified whether esophagitis present PCOS (polycystic ovarian syndrome) Polycystic ovaries Mood disorder (CMS/HCC) Unspecified episodic mood disorder Family planning Other general counseling and advice for contraceptive management Bilateral deafness Unspecified hearing loss Wears glasses Other specified conditions influencing health status Routine screening for STI (sexually transmitted infection) Screening examination for venereal disease Other specified health status documented in this encounter Additional Health Concerns Assessment Noted Time PHQ-9 Depression Total Score: 24 025 12:12 PM EDT documented as of this encounter Care Teams Activity Director Relationship Specialty Start Date End Date Priya Capellan MD [address] [place] [phone] PCP - General Family Medicine 09/11/24 documented as of this encounter
--- OUTSIDE RECORDS SUMMARY | 2024-11-04 15:14 | XMS_ITS | Encounter Summary ---
Author Organization [facility] Address [address] [facility] [address] [place] [address] Care Team Providers Care Education Spec Name Role Phone Priya Capellan MD Primary Care Provider +1- [phone] Encounter Details Date Type Department Care Team [...] 12/17/2024 2:45 PM EDT Office Visit [facility] MEDICINE [address] [place] [address] Priya Capellan MD [address] [place] [address] 03/17/2025 1:45 PM EDT Office Visit [facility] OPTOMETRY [address] [place] [address] Cat Londono, OD [address] [place] [address] documented as of this encounter Visit Diagnoses Not on filedocumented in this encounter Additional Health Concerns Assessment Noted Time PHQ-9 Depression Total Score: 24 10/31/ 025 12:12 PM EDT documented as of this encounter Care Teams Education Spec Relationship Specialty Start Date End Date Priya Capellan MD [address] [place] [id number] PCP - General Family Medicine 09/11/24 documented as of this encounter
--- OUTSIDE RECORDS SUMMARY | 2024-11-04 15:14 | XMS_ITS | Encounter Summary ---
Author Organization [employer] Address [address] [facility] [address] [place] [address] Care Team Providers Care Traveling Nurse Name Role Phone Priya Capellan MD Primary Care Provider +1- [phone] Reason for Visit * Reason Onset Date Comments CHART PREP 10/30/2024 Encounter Details Date Type Department Care Team ([facility] st Contact Info) Description 10/30/2024 Telephone [facility] MEDICINE [address] [place], [place] [phone] Priya Capellan MD [address] [place], [place] [phone] CHART PREP Social History Tobacco Use Types [...] Description 12/17/2024 2:45 PM EDT Office Visit [facility] MEDICINE [address] [place] [address] Priya Capellan MD [address] [place] [address] 03/17/2025 1:45 PM EDT Office Visit [facility] OPTOMETRY [address] [place] [address] Cat Londono OD [address] [place] [address] documented as of this encounter Visit Diagnoses Not on filedocumented in this encounter Care Teams Traveling Nurse Relationship Specialty Start Date End Date Priya Capellan MD [address] [place] [address] PCP - General Family Medicine 09/11/24 documented as of this encounter
--- OUTSIDE RECORDS SUMMARY | 2024-11-04 15:14 | XMS_ITS | Encounter Summary ---
Author Organization [employer] Address [address] [facility] [address] [place] [address] Care Team Providers Care Hoop Bending Machine Operator Name Role Phone Priya Capellan MD Primary Care Provider +1- [phone] Encounter Details Date Type Department Care Team (Latest Contact Info) Description 11/03/2024 Orders Only [facility] MEDICINE [address] [place], [place] [phone] Priya Capellan MD [address] [place], [place] [phone] Dislocation of temporomandibular joint, initial encounter (Primary Dx) Social History Tobacco Use Types Packs/Day Years [...] PM EDT documented as of this encounter Plan of Treatment Upcoming Encounters Date Type Department Care Team (Late st Contact Info) Description 12/17/2024 2:45 PM EDT Office Visit [facility] MEDICINE [address] [place] [address] Priya Capellan MD [address] [place] [address] 03/17/2025 1:45 PM EDT Office Visit [facility] OPTOMETRY [address] [place] [address] Tarka Cat, OD [address] [place] [address] documented as of this encounter Visit Diagnoses Diagnosis Dislocation of temporomandibular joint, initial encounter- Primary documented in this encounter Additional Health Concerns Assessment Noted Time PHQ-9 Depression Total Score: 24 025 12:12 PM EDT documented as of this encounter Care Teams Hoop Bending Machine Operator Relationship Specialty Start Date End Date Priya Capellan MD [address] [place] [address] PCP - General Family Medicine 09/11/24 documented as of this encounter
--- OUTSIDE RECORDS SUMMARY | 2024-11-04 15:15 | XMS_ITS | Continuity of Care Document ---
Author Organization [facility] Address [address] [id number] Phone Care Team Providers Care Supervisor Keymodule Assembly Name Role Phone Joshua Rashid PA-C Unavailable [...] - Active Procedures Procedure Date Office/Outpatient Visit, [facility] Advance Directives Directive Yes / No Effective Date File Name No Information Encounters Encounter Description Practice Location Reason(s) For Visit Diagnoses Date Provider Providers Copied on Encounter Office/Outpa tient Visit, [facility], [address] [place], [place], [address] [place] [address] , tel:[phone] Rachid TMJ dysfunction (chief complaint) TMJ dysfunctionAllergi c rhinitis, unspecified seasonality, unspecified triggerHearing difficulty of both ears 0 Rachid [place]. [address], [place], [address] [place] [address] , . tel:[phone] Referring Provider: Yesica Morales NP, [facility] [address] [place] [address], [address]. tel:[phone] Family History Family Member Type Diagnosis Age At Onset Sister Problem (finding) Hearing Loss Brother Problem (finding) Environmental Allergies Sister Problem (finding) Alive and Doing Well Mother Problem (finding) Alive and Doing Well Brother Problem (finding) Alive and Doing Well Father Problem (finding) Alive and Doing Well Payers Payer name Insurance type Covered constitution party ID Trevor eagn(s) [employer] [id number] Social History Type Description Quantity Date Captured [...] y of being hearing impaired. She utilizes Qatari sign language and has an garment presser with her at the visit today. Patient Care Teams Name Effective Dates (start - stop) Status Members No Information
--- OUTSIDE RECORDS SUMMARY | 2024-11-04 15:15 | XMS_ITS | Clinical Summary ---
Author Organization [employer] Address [address] [facility] [address] [place] [address] Care Team Providers Care Theater Teacher Name Role Phone Priya Capellan MD Primary Care Provider +1- [phone] Allergies No known active allergies Medications albuterol 108 (90 Base) MCG/ACT inhalerIndication s:Mild intermittent asthma without complication Inhale 2 puffs every 4 (four) hours if needed for wheezing. 18 g 5 11/01/19 26 Active busPIRone (Buspar) 5 MG tablet Take 1 tablet (5 mg) by mouth 2 times daily. 60 tablet 3 5 11/01/19 26 Active levonorgestrel (Plan B) 1.5 MG tabletIndications :Family planning Take 0.5 tablets (0.75 mg) by mouth every 12 (twelve) hours for 1 day. 1 tablet 5 11/02/19 25 Active Problems Problem Noted Date Diagnosed Date TMJ (dislocation of temporomandibular joint) PCOS (polycystic ovarian syndrome) 10/31/2024 Overview (10/31/2024): Per [facility]ESSIONAL note from 12/29/20, dx'd with PCOS (irreg periods and multicystic ovaries on u/s). -ordered labs 10/31/24 Assessment & Plan (10/31/2024 11:55 AM EDT): Per [employer]AL [employer]ESSIONAL note from 12/29/20, dx'd with PCOS (irreg periods and multicystic ovaries on u/s). -ordered labs 10/31/24 Bilateral deafness 10/31/2024 Overview (11/03/2024): -Patient needs cnc machine programmer for all visits. Please make note of this in any referrals. -has cochlear implants b/l Assessment & Plan (11/03/2024 8:20 AM EDT): -Patient needs cnc machine programmer for all visits. Please make note of this in any referrals. -has cochlear implants b/l Family planning 10/31/2024 Overview (10/31/2024): -pt does [...] annual evaluation due after 10/31/25 -referred to [facility] 10/31/24 -dental home encouraged. -royce care proxy given and filed 10/31/24 Assessment & Plan (10/31/2024 11:56 AM EDT): -next comprehensive annual evaluation due after 10/31/25 -referred to [facility] 10/31/24 -dental home encouraged. -royce care proxy [...] Encounters Date Type Department Care Team Description 11/03/2024 Orders Only [address] [address] Priya Capellan MD Dislocation of temporomandibular joint, initial encounter (Primary Dx) 10/31/2024 11:00 AM EDT Office Visit [address] [address] Priya Capellan MD Mild intermittent asthma without complication (Primary Dx); Attention deficit hyperactivity disorder (ADHD), unspecified ADHD type; Gastroesophageal reflux disease, unspecified whether esophagitis present; PCOS (polycystic ovarian syndrome); Mood disorder ([facility]/HCC); Family planning; Bilateral deafness; Wears glasses; Routine screening for STI (sexually transmitted infection); Other specified health status 10/31/2024 Patient Outreach [address] [address] Priya Capellan MD Care Coordination ([facility] outreach for SDOH PT-1 and food needs-LVM ) 10/31/2024 Travel 10/30/[address] [address] Priya Capellan MD CHART PREP 10/24/2024 Patient Outreach [facility] [address] [place], [place] [phone] Priya Capellan MD Pre-visit Planning (SDOH unable to reach [facility]) 10/13/[address] [address] Yany Duran, RN 09/29/[address] [address] Priya Capellan MD Appt cancel 10/30/2024 (I book the appt on 10/31/2024 at 10:45 am for New Patient. I will sent a reminder.) 09/29/2024 Travel 09/10/[address] [address] José Blue MD New Patient Request from [...] Description 12/17/2024 2:45 PM EDT Office Visit [facility] MEDICINE [address] [place] [address] Priya Capellan MD [address] [place] [address] 03/17/2025 1:45 PM EDT Office Visit [facility] OPTOMETRY [address] [place], [place] [phone] Cat Londono OD [address] [place] [address] Health Maintenance Due Date Last Done Comments [...] Cancer Screening 2022 HPV/Cotest 2022 COVID-19 Vaccine (2023-2 5 season) 2024 06/15/2021, 11/16/2020, 10/15/2020 Influenza Vaccine (#1) 2024 03/18/2021 Depression Screening 10/31/2025 10/31/2024, 10/31/2024 Disability Screening 10/31/2025 10/31/2024 SDOH Screening 10/31/2025 10/31/2024 Tobacco Screening [...] on patient's age to complete this topic Procedures Procedure Name Priority Date/Time Associated Diagnosis Comments CHLAMYDIA/N. GONORRHOEAE RNA, TMA, UROGENITAL Routine 10/31/2024 11:58 AM EDT Routine screening for STI (sexually transmitted infection) from Last 3 Months Results * Chlamydia/N. Gonorrhoeae RNA, TMA, Vagina (10/31/2024 11:58 AM EDT) CT PCR NOT DETECTED Not Detect. [facility] Comment:A not detected test result [...] psychologicalconsequences. NG PCR NOT DETECTED Not Detect. [facility] Comment:A not detected test result [...] AM EDT 10/31/2024 4:12 PM EDT Narrative [facility] - 11/02/2024 2:49 PM EDT Vaginal us Priya Capellan MD LAB MICROBIOLOGY - GENERAL ORDERABLES Final Result [facility] [address] [place] [address] [phone] from Last 3 Months Insurance [id number] Care Teams Theater Teacher Relationship Specialty Start Date End Date Priya Capellan MD [address] [place] [address] PCP - General Family Medicine 09/11/24
--- OUTSIDE RECORDS SUMMARY | 2024-11-04 15:15 | XMS_ITS | Encounter Summary ---
Author Organization [email or web address] Address [address] [facility] [address] [place] [address] Care Team Providers Care Utility Bag Assembler Name Role Phone Priya Capellan MD Primary Care Provider +1- [phone] Reason for Visit * Reason Comments Care Coordination CHW outreach for SDO H PT-1 and food needs-LVM Encounter Details Date Type Department Care Team (Latest Contact Info) Description 10/31/2024 Patient Outreach [facility] MEDICINE [address] [place] [address] Priya Capellan MD [address] [place] [address] Care Coordination (CHW outreach for SDOH PT-1 [...] happen 3 10/31/2024 12:13 PM SARAHT Neva Archer [place] NITIN-7 Total Score 20 [...] Description 12/17/2024 2:45 PM EDT Office Visit [facility] MEDICINE [address] [place] [address] Priya Capellan MD [address] [place] [address] 03/17/2025 1:45 PM EDT Office Visit [facility] OPTOMETRY [address] [place] [address] TarkaCat, OD [address] [place] [address] documented as of this encounter Visit Diagnoses Not on filedocumented in this encounter Additional Health Concerns Assessment Noted Time PHQ-9 Depression Total Score: 24 025 12:12 PM EDT documented as of this encounter Care Teams Utility Bag Assembler Relationship Specialty Start Date End Date Priya Capellan MD [address] [place] [address] PCP - General Family Medicine 09/11/24 documented as of this encounter
[2024-11-04 16:27] LABS: MANUAL DIFF FLAG NO
[2024-11-04 16:43] LABS: Basophils Percent Auto 0.5 % (0-2); Eosinophils Absolute Auto 0.1 X10*3/uL (0.0-0.4); Eosinophils Percent Auto 0.6 % (0-4); Hematocrit 41.2 % (37.0-47.0); Hemoglobin 13.7 g/dl (12.0-16.0); Imm Gran Abs Auto 0.02 X10*3/uL (0.00-0.03); Imm Gran Pct Auto 0.3 % (0.0-0.4); Lymphocytes Absolute Auto 2.5 X10*3/uL (1.2-4.9); Mean Corpuscular HGB Conc 33.3 g/dl (31.0-35.0); Mean Corpuscular Hemoglobin 29.8 pg (27.0-33.0); Mean Corpuscular Volume 89.8 fL (80.0-98.0); Mean Platelet Volume 12.1 fL (9.4-12.3); Monocytes Absolute Auto 0.4 X10*3/uL (0.1-1.2); Monocytes Percent Auto 4.5 % (2-11); Neutrophils Absolute Auto 4.8 x10*3/uL (2.0-8.3); Neutrophils Percent Auto 62.1 % (45-73); Platelet Count 222 X10*3/uL (160-400); Red Blood Count 4.59 X10*6/uL (4.20-5.50); Red Cell Distribution Width 12.2 % (11.0-16.0); White Blood Count 7.8 X10*3/uL (4.8-10.8)
[2024-11-04 16:59] LABS: Alanine Aminotransferase 25 U/L (0-31); Albumin Level 4.3 g/dL (3.5-5.0); Alkaline Phosphatase 77 U/L (39-117); Anion Gap 9 (12-20); Aspartate Amino Transferase 22 U/L (5-31); Bilirubin Direct 0.2 mg/dL (0.0-0.5); Bilirubin Total 0.6 mg/dL (0.0-1.0); Blood Urea Nitrogen 10 mg/dL (9-16); Calcium 8.9 mg/dL (8.4-10.2); Carbon Dioxide 26 mmol/L (22-29); Chloride 106 mmol/L (96-108); Cholesterol 162 mg/dL (<200); Estimated Glomerular Filt Rate > 60; Glucose Random 160 mg/dL (60-115); HDL Cholesterol 51 mg/dL (>40); LDL Cholesterol Calculated 98 mg/dL (<100); Potassium 3.3 mmol/L (3.3-5.1); Sodium 138 mmol/L (135-145); Total Protein 6.9 g/dL (6.5-8.0); Triglycerides 67 mg/dL (<150)
[2024-11-04 17:20] LABS: TSH reflex Free T4 0.88 uIU/mL (0.32-4.0); Vitamin D 25-OH Total 79.1 ng/mL (>30)
[2024-11-05 03:31] LABS: Syphilis Screen Nonreactive (Nonreactive)
[2024-11-05 03:41] LABS: HIV AB/AG Nonreactive (Nonreactive); HIV Num 1 0.07 S/CO (0.00-0.99); ~HepC Num1 0.07 S/CO (0.00-0.79); ~Hepatitis C Antibody Nonreactive (Nonreactive)
[2024-11-05 04:54] LABS: DHEA Sulfate 370 mcg/dL (19-237)
[2024-11-08 17:54] LABS: Testosterone, Total 22 ng/dL (2-45)
== END 2024-11-04 13:55 | disposition home or self-care (01) ==
LOC: HO.HHCL 13:54
PROVIDERS: Visit Provider Family Medicine
DX: E28.2 Polycystic ovarian syndrome (principal); Z11.3 Encounter for screening for infections with a predominantly sexual mode of transmission
CPT/HCPCS: 36415; 80048; 80061; 80076; 82306; 82627; 84403; 84443; 85025; 86780; 86803; 87389

== ENCOUNTER 2024-12-17 17:23 | Outpatient (REF) | payer OTHER, SELFPAY | END 2024-12-17 17:24 | disposition home or self-care (01) | LOC: HO.HHCLNP 17:23 | PROVIDERS: Visit Provider Family Medicine | DX: Z12.4 Encounter for screening for malignant neoplasm of cervix (principal); Z11.51 Encounter for screening for human papillomavirus (HPV) | CPT/HCPCS: 87626; 88175 ==

== ENCOUNTER 2025-01-21 09:31 | Outpatient (AMB) | payer OTHER, SELFPAY ==
--- NOTE | 2025-01-21 09:35 | MHC.OFFVIS ---
Vital Signs 01/21/25 09:38 Height 5 ft 3 in Weight 116 lb 13.52 oz BMI 20.7 BP 90/56 L Blood Pressure Location Lt brachial Position Sitting Pulse 64 Pulse Source Pulse Oximeter Pulse Oximetry (%) 98 Oxygen Delivery Method Room Air Intake Visit Reasons: Tracheomalacia Air Quality Manager Required: Yes Air Quality Manager Services: Air Quality Manager Present Air Quality Manager Name: BLANCA López [phone] Accompanied by: Self / Same As Patient Allergies No Known Allergies Allergy (Verified 01/21/25 09:47) HPI Comments Details: The patient is here for pulmonary evaluation. 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 She had been evaluated by ENT for many years as a child. She grew up with the condition and she did well. She did require prednisone at times because of the stridor the wheezing. She also had a nebulizer back then and she does not have 1 now. She is trying to get situated in the community. The patient previously was evaluated in [place]. So for now will go ahead and start her on the initial evaluation with pulmonary function studies and a chest x-ray. The patient does respond to prednisone she rather have some on home which I think is reasonable specially since she lives far away. In addition to that will provide her with a nebulizer she can have and she can use as needed with albuterol. Budesonide may be a good option for her in the future. She also has evidence of postnasal drip and chronic rhinitis. She does have allergies. She outgrew a lot of her allergies. Although probably still having some. She does use nasal sprays and antihistamine therapy. Right now she does not feel too sick and does not feel like she needs some. She will monitor closely the significant postnasal drip Marisela that does not choke her up. And the patient follow-up in 3-4 months and will review her PFTs and chest x-ray when she returns. If any issues arise she will call for further recommendations. [facility] Medical History (Updated 01/21/25 @ 22:07 by Satya Bowles MD) Asthma Tracheomalacia Social History (Updated 01/21/25 @ 09:48 by Yenny Elias CMA) Patient Tobacco Use Status: Former Tobacco user Review of Systems Const Denies fever(s) Eyes Reports no additional complaints ENT Reports hearing loss Card Denies chest pain Resp Reports stridor and Reports wheezing GI Reports no additional complaints Musc Reports no additional complaints Skin/Breast Denies rash Neuro Reports no additional complaints Endo Reports no additional complaints Aller/Immun Reports no additional complaints and Reports wheezing Physical Exam Vital Signs: Last Vital Signs Pulse 64 01/21/25 09:38 BP 90/56 L 01/21/25 09:38 Pulse Ox 98 01/21/25 09:38 Oxygen Delivery Method Room Air 01/21/25 09:38 BMI result Body Mass Index 20.7 Const General: comfortable HEENT Head: Yes normocephalic Neck Neck: Yes supple Chest Chest palpation & inspection: normal inspection of the chest Resp Effort & Inspection: normal respiratory effort and no stridor Auscultation: clear to auscultation bilaterally Cardio Rate: regular rate Rhythm: regular rhythm Heart sounds: S1 normal heart sound present and S2 normal heart sound present GI Palpation (GI): Soft to palpation Skin General skin exam: no rashes or lesions noted Extrem General: Yes no clubbing, cyanosis or edema Assessment & Plan Assessment & Plan (1) Asthma: Code(s): J45.909 - Unspecified asthma, uncomplicated Category: Medical Qualifiers: Asthma severity: mild Asthma persistence: intermittent Asthma complication type: uncomplicated Qualified Code(s): J45.20 - Mild intermittent asthma, uncomplicated (2) Tracheomalacia: Code(s): J39.8 - Other specified diseases of upper respiratory tract Category: Medical Plan PFTs CXR, may benefit from expiratory CAT scan of the chest in the future provided a nebulizer for albuterol ASHELY as needed Consider BUdesonide F/U 3 months Orders: Orders PFT pulmonary function test Today J39.8 - Other specified diseases of upper respiratory tract, J45.909 - Unspecified asthma, uncomplicated XR chest 2V Today J39.8 - Other specified diseases of upper respiratory tract, J45.909 - Unspecified asthma, uncomplicated Medications: New albuterol sulfate 2.5 mg (3 mL) inhalation Q4H PRN 90 mL 11RF shortness of breath or wheezing 30 days prednisone PO daily; Take 2 tabs daily x 5 days, then 1 tablet daily x 5 days 15 tabs 0RF 10 days Coding Level of Care Code New Pt Level 4 (12927) Diagnoses Mild intermittent asthma without complication J45.20 Asthma severity: mild Asthma persistence: intermittent Asthma complication type: uncomplicated Tracheomalacia J39.8 Time Spent (min) 36
[2025-01-21 09:38] VITALS: BP 90/56; PULSE 64; O2SAT 98; BMI 20.7
--- OUTSIDE RECORDS SUMMARY | 2025-01-21 09:55 | XMS_ITS | Clinical Summary ---
Author Organization [employer] Address [address] [facility] [address] [place] [address] Care Team Providers Care Pallet Stone Positioner Name Role Phone Priya Capellan MD Primary Care Provider [phone] Allergies Active Allergy Reactions Criticality Noted Date Comments Milk (Cow) 12/29/2020 Other Reaction(s): GI Upset Medications * This document contains information received from the source organization and may not represent a complete record from that organization. albuterol 108 (90 Base) MCG/ACT inhalerIndicatio ns:Mild intermittent asthma without complication Inhale 2 puffs every 4 (four) hours if needed for wheezing. 18 g 5 11/01/19 26 Active busPIRone (Buspar) 5 MG tablet Take 1 tablet (5 mg) by mouth 2 times daily. 60 tablet 3 5 11/01/19 26 Active omeprazole OTC (PriLOSEC OTC) 20 MG EC tablet Take 1 tablet (20 mg) by mouth before breakfast. Do not crush, chew, or split. 30 tablet 3 5 11/12/19 26 Active etonogestrel-eth inyl estradiol (Nuvaring) 0.12-0.015 MG/24HR vaginal ringIndications: Family planning Insert vaginally and leave in place for 3 consecutive weeks, then remove for 1 week. 3 Ring. 3 5 Active cetirizine (ZyrTEC) 10 MG tablet TAKE 1 TABLET BY MOUTH EVERY DAY 90 tablet 5 Active Active Problems Problem Noted Date Diagnosed Date Cervical cancer screening 12/17/2024 Assessment & Plan (12/17/2024 3:37 PM EDT): Pap with HPV testing done 12/17/24 STI testing offered, PreP offered Preventative care and harm reduction discussed Orders: Pap Smear Tracheomalacia 11/21/2024 Overview (12/17/2024): Pt reports hx of tracheomalacia and frequent need for prednisone with URIs. We don't have any records at this time and she denies hx of specialist. It is unclear what the work up was. Will refer to pulmonary for further evaluation 11/21/24. -has appt with Pulmonology 01/21/25 Assessment & Plan (12/17/2024 3:37 PM EDT): Pt reports hx of tracheomalacia and frequent need for prednisone with URIs. We don't have any records at this time and she denies hx of specialist. It is unclear what the work up was. Will refer to pulmonary for further evaluation 11/21/24. -has appt with Pulmonology 01/21/25 Assessment & Plan (11/21/2024 10:44 AM EDT): Pt reports hx of tracheomalacia and frequent need for prednisone with URIs. We don't have any records at this time and she denies hx of specialist. It is unclear what the work up was. Will refer to pulmonary for further evaluation 11/21/24. Elevated DHEA 11/14/2024 Overview (12/17/2024): Lab Results Component Value Date DHEA 370 (A) 11/04/2024 With normal testosterone, will refer to endocrinology for further evaluation. -has appt scheduled with Endo 03/11/25 Assessment & Plan (12/17/2024 3:37 PM EDT): Lab Results Component Value Date DHEA 370 (A) 11/04/2024 With normal testosterone, will refer to endocrinology for further evaluation. -has appt scheduled with Endo 03/11/25 Assessment & Plan (11/14/2024 10:05 AM EDT): Lab Results Component Value Date DHEA 370 (A) 11/04/2024 With normal testosterone, will refer to endocrinology for further evaluation. TMJ (dislocation of temporomandibular joint) PCOS (polycystic ovarian syndrome) 10/31/2024 Overview (12/17/2024): Per EMERGENCY ROOM PHYSICIAN note from 12/29/20, dx'd with PCOS (irreg periods and multicystic ovaries on u/s). No further notes or work up avaialbe. I ordere dtestosterone and DHEA. DHEA cambe back elevated. Will refer to endocrinology for further work up. -has appt scheduled with Endo 03/11/25 Assessment & Plan (12/17/2024 3:37 PM EDT): Per EMERGENCY ROOM PHYSICIAN note from 12/29/20, dx'd with PCOS (irreg periods and multicystic ovaries on u/s). No further notes or work up avaialbe. I ordere dtestosterone and DHEA. DHEA cambe back elevated. Will refer to endocrinology for further work up. -has appt scheduled with Endo 03/11/25 Assessment & Plan (11/14/2024 10:06 AM EDT): Per EMERGENCY ROOM PHYSICIAN note from 12/29/20, dx'd with PCOS (irreg periods and multicystic ovaries on u/s). No further notes or work up avaialbe. I ordere dtestosterone and DHEA. DHEA cambe back elevated. Will refer to endocrinology for further work up. Bilateral deafness 10/31/2024 Overview (11/03/2024): -Patient needs subassemblies wirer for all visits. Please make note of this in any referrals. -has cochlear implants b/l Assessment & Plan (12/17/2024 3:37 PM EDT): -Patient needs subassemblies wirer for all visits. Please make note of this in any referrals. -has cochlear implants b/l -[facility] 12/17/24 Orders: Referral to Audiology; Future Assessment & Plan (11/03/2024 8:20 AM EDT): -Patient needs subassemblies wirer for all visits. Please make note of this in any referrals. -has cochlear implants b/l Family planning 10/31/2024 Overview (12/17/2024): -pt does not desire within the next 12 months. -discussed efficacies, benefits and risks of available contraceptive means available including IUD, subdermal implantable device, injection, combination oral contraceptives, patch, vaginal ring and condoms. -patient agrees to ring. -prescribed etonogestrel-ethinyl estradiol (Nuvaring) 0.12-0.015 MG/24HR vaginal ring 12/17/24 -indications for Prep discussed. -condoms offered. -Plan B offered, prescribed levonorgestrel (Plan B) 1.5 MG 10/31/24 Assessment & Plan (12/17/2024 3:37 PM EDT): -pt does not desire within the next 12 months. -discussed efficacies, benefits and risks of available contraceptive means available including IUD, subdermal implantable device, injection, combination oral contraceptives, patch, vaginal ring and condoms. -patient agrees to ring. -prescribed etonogestrel-ethinyl estradiol (Nuvaring) 0.12-0.015 MG/24HR vaginal ring 12/17/24 -indications for Prep discussed. -condoms offered. -Plan B offered, prescribed levonorgestrel (Plan B) 1.5 MG 10/31/24 Orders: etonogestrel-ethinyl estradiol (Nuvaring) 0.12-0.015 MG/24HR vaginal ring; Insert vaginally and leave in place for 3 consecutive weeks, then remove for 1 week. Assessment & Plan (10/31/2024 11:55 AM EDT): [...] annual evaluation due after 10/31/25 -referred to [facility] 10/31/24 -dental home encouraged. -[facility] care proxy given and filed 10/31/24 Assessment & Plan (10/31/2024 11:56 AM EDT): -next comprehensive annual evaluation due after 10/31/25 -referred to [facility] 10/31/24 -dental home encouraged. -royce care [...] Base) MCG/ACT inhaler Mood disorder 10/31/2024 Overview (12/17/2024): Reports difficulty with mood, was on Prozac but had side effects and used to see a therapist. Has a deaf support group. -Has deaf therapist through [facility]. Assessment & Plan (12/17/2024 3:37 PM EDT): Reports difficulty with mood, was on Prozac but had side effects and used to see a therapist. Has a deaf support group. -Has deaf therapist through [facility]. Assessment & Plan (10/31/2024 11:56 AM EDT): Reports difficulty with mood, was on Prozac but had side effects and used to see a therapist. Has a deaf support group. -recommended searching for deaf therapist per pt's preference. Encounters * This document contains information received from the source organization and may not represent a complete record from that organization. Date Type Department Care Team Description 01/19/2025 2:00 PM EDT Nurse Only [facility] [address] [place] [phone] Allison Camacho RN Encounter for immunization 01/19/2025 Travel 01/15/2025 Orders Only [facility] [address] [place] [address] Priya Capellan MD Positive depression screening (Primary Dx) 01/13/2025 Telephone [facility] [place] [address] Priya Capellan MD Referral 01/12/2025 Travel 01/02/2025 Refill [facility] [place] [address] Priya Capellan MD 12/22/2024 Results Follow-Up [facility] [address] [place] [address] [place] [address] Priya Capellan MD Pap Smear 12/17/2024 2:45 PM EDT Office Visit [facility] [address] [place] [phone] Priya Capellan MD Elevated DHEA (Primary Dx); PCOS (polycystic ovarian syndrome); Tracheomalacia; Mood disorder (CMS/HCC); Cervical cancer screening; Family planning; History of simple renal cyst; Bilateral deafness; Encounter for immunization 12/17/2024 Orders Only [address] [address] Priya Capellan MD 12/17/2024 Travel 12/16/[address] [address] Priya Capellan MD CHART PREP 12/10/2024 Travel 11/19/[address] [address] Priya Capellan MD 11/15/[address] [address] Priya Capellan MD 11/13/2024 Refill [facility] [address] [place] [address] Priya Capellan MD 11/11/2024 10:00 AM EDT Office Visit [facility] [address] [place] [phone] Arlen Breaux DO Chronic allergic rhinitis (Primary Dx); Pharyngitis, unspecified etiology 11/11/2024 Refill [facility] [address] [place] [phone] Arlen Breaux DO 11/11/2024 Travel 11/07/2024 Orders Only [address] [address] Priya Capellan MD Blood glucose elevated (Primary Dx) 11/05/2024 Results Follow-Up [address] [address] Priya Capellan MD Basic Metabolic Panel 11/03/2024 Orders Only [address] [address] Priya Capellan MD Dislocation of temporomandibular joint, initial encounter (Primary Dx) 10/31/2024 11:00 AM EDT Office Visit [facility] [address] [place] [phone] Priya Capellan MD Elevated DHEA (Primary Dx); PCOS (polycystic ovarian syndrome); Mild intermittent asthma without complication; Attention deficit hyperactivity disorder (ADHD), unspecified ADHD type; Gastroesophageal reflux disease, unspecified whether esophagitis present; Mood disorder ([facility]); Family planning; Bilateral deafness; Wears glasses; Routine screening for STI (sexually transmitted infection); Other specified health status; Tracheomalacia 10/31/2024 Patient Outreach [facility] [address] [place] [phone] Priya Capellan MD Care Coordination ([facility] outreach for SDOH PT-1 and food needs-LVM ) 10/31/2024 Travel 10/30/2024 Telephone [facility] [address] [place] [address] [phone] Priya Capellan MD CHART PREP 10/24/2024 Patient Outreach [facility] [address] [place] [address] Priya Capellan MD Pre-visit Planning ([facility] unable to reach [facility]) from Last 3 Months Immunizations Immunization Administration Dates Next Due HepB-CpG 01/19/2025,12/17/2024 Pneumococcal Conjugate PCV 20 12/17/2024 Social History Tobacco Use Types Packs/Day Years Used Date Smoking Tobacco: Never Passive Smoke Exposure: Never Smokeless Tobacco: Never Tobacco Cessation:Counseling Given: Not Answered Alcohol Use Standard Drinks/Week Comments Never 0 (1 standard drink = 0.6 oz pur e alcohol) Depression Answer Date Recorded Patient Health Questionnaire-9 [...] Q2 Not on file 10/31/2024 Comments Unknown Intention Date Recorded No desire to become (finding) 0 12/17/2024 Sex and Gender Information Value Date Recorded Sex Assigned at Female 09/10/2024 2:57 PM EDT Legal Sex Female 2:54 PM EDT Gender Identity Female 09/10/2024 2:57 PM EDT Sexual Orientation Straight 10/23/2024 3: 55 PM EDT Last Filed Vital Signs Vital Sign Reading Time Taken Comments Blood Pressure 118/76 12/17/2024 2:44 PM EDT Pulse 75 12/17/2024 2:44 PM EDT Temperature 36.4 C (97.6 F) 12/17/2024 2:44 PM EDT Respiratory Rate 20 12/17/2024 2:44 PM EDT Oxygen Saturation 100% 12/17/2024 2:44 PM EDT Inhaled Oxygen Concentration - - Weight 51.9 kg (114 lb 6.4 oz) 12/17/2024 2:44 P M EDT Height 160 cm (5' 3 ) 12/17/2024 2:44 PM EDT Body Mass Index 20.27 12/17/2024 2:44 PM EDT Plan of Treatment Upcoming Encounters Date Type Department Care Team (Late st Contact Info) Description 03/17/2025 1:45 PM EDT Office Visit [facility] [address] [place] [address] Cat Londono, OD [address] [place] [address] Health Maintenance Due Date Last Done Comments Alcohol/Substance Use Screening 2004 HPV Vaccines (1 - 3-dose series) 11/24/2007 COVID-19 Vaccine ( - 2023-2 5 season) 2024 06/15/2021, 11/16/2020, 10/15/2020 Influenza Vaccine (#1) 2025 03/18/2021 Depression Monitoring 05/03/2025 10/31/2024 , 10/31/2024 SDOH Screening 10/31/2025 10/31/2024 Disability Screening 12/10/2025 12/10/2024 Family Planning (PISQ) 12/17/2025 12/17/2024 Tobacco Screening 12/17/2025 12/17/2024 Cervical Cancer Screening 12/17/2029 HPV/Cotest 12/17/2029 12/17/2024 Pap Smear 12/17/2029 12/17/2024 DTaP/Tdap/Td Vaccines (2 - T d or Tdap) 11/05/2031 11/04/2021 Zoster Vaccines (1 of 2) 2042 RSV Patients and Patients Aged 60 years or older (1 - 1-dose 75+ series) 11/24/2067 HIV Screening Completed 11/04/2024 Hepatitis C Screening Completed 11/04/2024 Pneumococcal Vaccine: Pediatrics (0 to 5 Years) and At-Risk Patients (6 to 49) Years Completed 12/17/2024 Hepatitis B Vaccines Completed 01/19/2025, 12/17/2024 HIB Vaccines Aged Out No longer eligi [...] Procedure Name Priority Date/Time Associated Diagnosis Comments PAP SMEAR Routine 12/17/2024 12:00 AM EDT Cervical cancer screening HPV DNA, LOW/HIGH RISK Routine 12/17/2024 12:00 AM EDT POCT INFLUENZA B (ID NOW RAPID MOLECULAR) Routine 11/11/2024 10:24 AM EDT Chronic allergic rhinitis POCT INFLUENZA A (ID NOW RAPID MOLECULAR) Routine 11/11/2024 10:24 AM EDT Chronic allergic rhinitis POC PATEL ID NOW STREP A Routine 11/11/2024 10:23 AM EDT Chronic allergic rhinitis POCT RAPID COVID ANTIGEN Routine 11/11/2024 10:23 AM EDT Chronic allergic rhinitis VITAMIN D,25-OH,TOTAL,IA Routine 11/04/2024 1:59 PM EDT PCOS (polycystic ovarian syndrome) CBC WITH AUTO DIFFERENTIAL Routine 11/04/2024 1:59 PM EDT PCOS (polycystic ovarian syndrome) TSH W/REFLEX TO FT4 Routine 11/04/2024 1 :59 PM EDT PCOS (polycystic ovarian syndrome) BASIC METABOLIC PANEL Routine 11/04/2024 1:59 PM EDT PCOS (polycystic ovarian syndrome) LIPID PANEL, STANDARD Routine 11/04/2024 1:59 PM EDT PCOS (polycystic ovarian syndrome) HEPATIC FUNCTION PANEL Routine 11/04/2024 1:59 PM EDT PCOS (polycystic ovarian syndrome) SYPHILIS SCREEN Routine 11/04/2024 1:59 PM EDT Routine screening for STI (sexually transmitted infection) HEPATITIS C AB W/REFL TO HCV RNA, QN, PCR Routine 11/04/2024 1:59 PM EDT Routine screening for STI (sexually transmitted infection) HIV 1/2 ANTIGEN/ANTIBODY, FOURTH GENERATION W/RFL Routine 11/04/2024 1:59 PM EDT Routine screening for STI (sexually transmitted infection) DHEA SULFATE Routine 11/04/2024 1:59 PM EDT PCOS (polycystic ovarian syndrome) TESTOSTERONE, TOTAL, MALES (ADULT), IA Routine 11/04/2024 1:59 PM EDT PCOS (polycystic ovarian syndrome) CHLAMYDIA/N. GONORRHOEAE RNA, TMA, UROGENITAL Routine 10/31/2024 11:58 AM EDT Routine screening for STI (sexually transmitted infection) from Last 3 Months Results * HPV DNA, Low/High Risk (12/17/2024 12:00 AM EDT) HPV High Risk Negative Negative [facility] HPV Genotype 16 Negative Negative [facility] HPV Genotype 18 Negative Negative [facility] Comment:HPV testing performe d at [facility] (CLIA#[id number]), [address] [place] [address].Testing for HPV was performed using the Sherry PEPE 6800system. The presence of HPV in the female genital tract isassociated with a number of diseases, including cervicalcarcinoma. The HPV DNA high risk pool tests for HPV 31, 33,35, 39, 45, 51, 52, 56, 58, 59, 66 and 68. The testing forHPV 16 and 18 genotypes has also been performed. A positiveresult indicates detection of nucleic acid sequences fromone or more subtypes, whereas a negative result indicatessuch sequences were not detected. 12/17/2024 12/18/2024 8:0 0 AM EDT Priya Capellan MD LAB BLOOD ORDERABLES Final Result [facility] [address] [place] [address] [phone] * Pap Smear (12/17/2024 12:00 AM EDT) Swab 12/17/2024 12/18/2024 8:0 0 AM EDT Narrative [facility] - 12/22/2024 3:07 PM EDT ----- ------- Name: Joanna Soria Age/Sex: 34/F : 1990 Unit#: [id number] Attend Dr: Priya Capellan MD Re12/17/24 Status: [facility] Location: [facility] Disch: ----- ------- SPEC : [id number] RECD: 12/18/24 STATUS: KENNY VALDOVINOS NUM: [id number] ROLY: 12/17/[address] [facility] [address]: Priya Capellan MD ENTERED: 12/18/24 SP TYPE: Pap Smr OT DR: ORDERED: Pap Smear Interpretation Satisfactory for evaluation. Negative for intraepithelial lesion or malignancy. HPV High Risk: Negative HPV Genotyping 16: Negative HPV Genotyping 18: Negative Clinical Information LMP: Unknown date Previous PAP test: Unknown date, WNL Other history: Cervical cancer screening Material Received ThinPrep-Cervical PAP Disclaimer As of April 09, 2024, the technical services to include automated prescreening performed by the ThinPrep Imaging System, PAP screening and HPV testing will be performed at [facility] (CLIA #[id number]), [address] [place] [id number]. Testing for HPV was performed using the Sherry PEPE 6800 system. The presence of HPV in the female genital tract is associated with a number of diseases, including cervical carcinoma. The HPV DNA high risk pool tests for HPV 31, 33, 35, 39, 45, 51, 52, 56, 58, 59, 66 and 68. The testing for HPV 16 and 18 genotypes has also been performed. A positive result indicates detection of nucleic acid sequences from one or more subtypes, whereas a negative result indicates such sequences were not detected. All professional services are performed by [facility] ([address] [place] [address]; ; CLIA #[id number]). The PAP Test is a screening procedure with the inherent possibility of both false negative and false positive results. Results should be interpreted in the context of historic and current clinical findings. Reliability of the PAP Test is enhanced by performing the test on a regular repetitive basis. ----- ------- Signed (signature on file) PERLITA Velázquez ([facility]) 12/22/24 1507 ----- ------- END OF REPORT Priya Capellan MD LAB CYTOLOGY ORDERABLES Fi nal Result Performing Organization Address [facility] Co de Phone Number [facility] [address] [place] [phone] * POCT Rapid Influenza B PATEL ID NOW (11/11/2024 10:24 AM EDT) [facility] Influenza B Negative Negative, Indeterminate [facility] QC Media Lot # [id number] [facility] Lot# Expiration Date [facility] Swab 11/11/2024 10:2 4 AM EDT Arlen Breaux DO POINT OF CARE TEST ENTER/ANTONIO T ORDERABLES Final Result Performing Organization Address [facility] Co de Phone Number [facility] [address] [place] [phone] * POCT Rapid Influenza A PATEL ID NOW (11/11/2024 10:24 AM EDT) [facility] Influenza A Negative Negative, Indeterminate [facility] QC Media Lot # [id number] [facility] Lot# Expiration Date [facility] Swab 11/11/2024 10:2 4 AM EDT Arlen Saeid DO POINT OF CARE TEST ENTER/ANTONIO T ORDERABLES Final Result Performing Organization Address [facility] Co de Phone Number [facility] [address] [place] [phone] * POCT Rapid Strep A PATEL ID NOW (11/11/2024 10:23 AM EDT) [facility] Rapid Strep A Screen Negative Negative, None Detected QC Media Lot # [id number] Lot# Expiration Date Swab 11/11/2024 10:2 3 AM EDT Arlen Saeid DO POINT OF CARE TEST ENTER/ANTONIO T ORDERABLES Final Result * POCT Rapid Covid-19 BinaxNOW (11/11/2024 10:23 AM EDT) Rapid COVID Ag Negative QC Media Lot # [id number] Lot# Expiration Date Swab 11/11/2024 10:2 3 AM EDT Arlen Breaux DO POINT OF CARE TEST ENTER/ANTONIO T ORDERABLES Final Result * Syphilis Screen (11/04/2024 1:59 PM EDT) Pathologist [facility] Syphilis Screen Nonreactive Nonreactive [facility] Blood Venous blood specimen / Unknown 11/04/2024 1:59 PM EDT 11/04/2024 4:22 PM EDT Priya Capellan MD LAB BLOOD ORDERABLES Final Result [facility] [address] [place] [phone] * Vitamin D, 25-Hydroxy, Total, Immunoassay (11/04/2024 1:59 PM EDT) Pathologist [facility] Vitamin D 25-OH Total 79.1 >30 ng/mL [facility] Comment: Health Based Reference Values*< 20 ng/mL Shlsfddzk34-12 ng/mL Insufficient> 30 ng/mL Sufficient*Shay LINDER. N Engl J Med. 2007;357:266-280There is no well-established upper level of normal vitamin Dlevels. Some laboratories use 50 ng/mL as an upper limit ofnormal. However, toxicity is patient-dependent and may occurat any level. Careful correlation with the patient'spresentation is necessary and, if there is concern forvitamin D toxicity, treatment should be consideredirrespective of the serum level.Care must be taken in interpreting Vitamin D results fromdifferent laboratories and methodologies. Published datademonstrated that results from patients undergoinghemodialysis may show a negative bias when tested withvarious automated 25-OH vitamin D assays when compared toLC-MS/MS.When testing samples from patients whose predominant form ofVitamin D is Vitamin D2, such as patients receiving VitaminD2 supplementation, results that are subtherapeutic shouldbe confirmed with another method such as LC-MS/MS. Blood 11/04/2024 1:59 PM EDT 11/04/2024 4:22 PM EDT Priya Capellan MD LAB BLOOD ORDERABLES Final Result Performing Organization Address [facility] Co de Phone Number [facility] [address] [place] [phone] * TSH with Reflex to Free T4 (11/04/2024 1:59 PM EDT) TSH reflex Free T4 0.88 0.32 - 4.0 uIU/mL [facility] Blood 11/04/2024 1:59 PM EDT 11/04/2024 4:22 PM EDT Priya Capellan MD LAB BLOOD ORDERABLES Final Result Performing Organization Address [facility]/ZIP Co de Phone Number [facility] [address] [place] [phone] * CBC auto differential (11/04/2024 1:59 PM EDT) White Blood Count 7.8 4.8 - 10.8 X10*3/uL [facility] Red Blood Count 4.59 4.20 - 5.50 X10*6/uL [facility] Hemoglobin 13.7 12.0 - 16.0 g/dl [facility] Hematocrit 41.2 37.0 - 47.0 % [facility] Mean Corpuscular Volume 89.8 80.0 - 98.0 fL [facility] Mean Corpuscular Hemoglobin 29.8 27.0 - 33.0 pg [facility] Mean Corpuscular HGB Conc 33.3 31.0 - 35.0 g/dl [facility] Red Cell Distribution Width 12.2 11.0 - 16.0 % [facility] Platelet Count 222 160 - 400 X10*3/uL [facility] Mean Platelet Volume 12.1 9.4 - 12.3 fL [facility] Neutrophils Percent Auto 62.1 45 - 73 % [facility] Imm Gran Pct Auto 0.3 0.0 - 0.4 % [facility] Lymphocytes Percent Auto 32.0 20 - 40 % [facility] Monocytes Percent Auto 4.5 2 - 11 % [facility] Eosinophils Percent Auto 0.6 0 - 4 % [facility] Basophils Percent Auto 0.5 0 - 2 % [facility] NRBC Pct Auto 0.0 0.0 - 0.2 /100WBC [facility] Neutrophils Absolute Auto 4.8 2.0 - 8.3 x10*3/uL [facility] Imm Gran Abs Auto 0.02 0.00 - 0.03 X10*3/uL [facility] Lymphocytes Absolute Auto 2.5 1.2 - 4.9 X10*3/uL [facility] Monocytes Absolute Auto 0.4 0.1 - 1.2 X10*3/uL [facility] Eosinophils Absolute Auto 0.1 0.0 - 0.4 X10*3/uL [facility] Basophils Absolute Auto 0.0 0.0 - 0.2 X10*3/uL [facility] NRBC Abs Auto 0.000 0.0 - 0.012 X10*3/uL [facility] Blood Venous blood specimen / Unknown 11/04/2024 1:59 PM EDT 11/04/2024 4:22 PM EDT Priya Capellan MD LAB BLOOD ORDERABLES Final Result [facility] [address] [place] [address] [phone] * Hepatitis C Antibody with Reflex to HCV, RNA, Quantitative, Real-Time PCR (11/04/2024 1:59 PM EDT) Pathologist [facility] Hepatitis C Antibody Nonreactive Nonreactive [facility] Comment:Antibodies to HCV no t detected; does not exclude early acuteHCV infection. Blood Venous blood specimen / Unknown 11/04/2024 1:59 PM EDT 11/04/2024 4:22 PM EDT Priya Capellan MD LAB BLOOD ORDERABLES Final Result Performing Organization Address [facility] de Phone Number [facility] [address] [place] [address] [phone] * (ABNORMAL) DHEA Sulfate (11/04/2024 1:59 PM EDT) Pathologist [facility] DHEA Sulfate 370(A) 19 - 237 mcg/dL [facility] Comment:THIS TEST WAS PERFOR MED AT:[facility] [address] [id number] CONTRERAS MD Blood Venous blood specimen / Unknown 11/04/2024 1:59 PM EDT 11/04/2024 4:22 PM EDT Priya Capellan MD LAB BLOOD ORDERABLES Final Result Performing Organization Address [facility] Co de Phone Number [facility] [address] [place] [address] [phone] * HIV-1/2 Antigen and Antibodies, Fourth Generation, with Reflexes (11/04/2024 1:59 PM EDT) Pathologist [facility] HIV AB/AG Nonreactive Nonreactive [facility] Comment:HIV-1 p24 Ag and/or HIV-1/HIV-2 Ab not detected.A test result that is nonreactive does not exclude thepossibility of exposure to or infection with HIV-1 and/orHIV-2. Nonreactive results in this assay for individualswith prior exposure to HIV-1 and/or HIV-2 may be due toantigen and antibody levels that are below the limit ofdetection of this assay.The [employer] Al[employer] HIV Ag/Ab Combo assay result andsupplemental assay results should be interpreted inconjunction with the patient's clinical presentation,history and other laboratory results. If the results areinconsistent with clinical evidence, additional testing issuggested to confirm the result. Blood Venous blood specimen / Unknown 11/04/2024 1:59 PM EDT 11/04/2024 4:22 PM EDT Priya Capellan MD LAB BLOOD ORDERABLES Final Result [facility] [address] [place] [address] [phone] * Testosterone, Total, males (Adult), [place] (11/04/2024 1:59 PM EDT) [facility] Testosterone, Total 22 2 - 45 ng/dL [facility] Comment:For additional infor fam, please refer [email or web address](This link is being provided for informational/educational purposes only.)This test was developed and its analytical performancecharacteristics have been determined by [employer] [place], [place]. It hasnot been cleared or approved by the U.S. Food and DrugAdministration. This assay has been validated pursuantto the CLIA regulations and is used for clinicalpurposes.THIS TEST WAS PERFORMED AT:[id number] [place] [address]AMZMYDCWHIT BEARDEN MD,PHD Blood Venous blood specimen / Unknown 11/04/2024 1:59 PM EDT 11/04/2024 4:22 PM EDT Priya Capellan MD LAB BLOOD ORDERABLES Final Result Performing Organization Address City/[facility]/ZIP Co de Phone Number [facility] [address] [place] [address] [phone] * Hepatic Function Panel (11/04/2024 1:59 PM EDT) Bilirubin, Total 0.6 0.0 - 1.0 mg/dL [facility] Bilirubin, Direct 0.2 0.0 - 0.5 mg/dL [facility] Aspartate Amino Transferase 22 5 - 31 U/L [facility] Alanine Aminotransferase 25 0 - 31 U/L [facility] Total Protein 6.9 6.5 - 8.0 g/dL [facility] Albumin Level 4.3 3.5 - 5.0 g/dL [facility] Alkaline Phosphatase 77 39 - 117 U/L [facility] Blood Venous blood specimen / Unknown 11/04/2024 1:59 PM EDT 11/04/2024 4:22 PM EDT Priya Capellan MD LAB BLOOD ORDERABLES Final Result Performing Organization Address City/[facility] Co de Phone Number [facility] [address] [place] [phone] * Lipid Panel, Standard (11/04/2024 1:59 PM EDT) Triglycerides 67 <150 mg/dL [facility] Comment:Desirable Triglyceri de: less than 150 mg/dLBorderline High Triglyceride 150-199 mg/dLHigh Triglyceride: 200-499 mg/dLVery High Triglyceride: greater than or equal to 5OO mg/dL Cholesterol 162 <200 mg/dL [facility] Comment:Desirable Cholestero l: less than 200 mg/dLBorderline High Cholesterol: 200-239 mg/dLHigh Cholesterol: greater than 239 mg/dL LDL Cholesterol Calculated 98 <100 mg/dL [facility] Comment:Desirable LDL: less than 100 mg/dLNear Optimal/Above Optimal LDL: 110- 129 mg/dLBorderline High LDL: 130-159 mg/dLHigh LDL: 160-189 mg/dLVery High LDL: greater than or equal to 190 mg/dL HDL Cholesterol 51 >40 mg/dL [facility] Comment:Desirable HDL: great er than 40 mg/dL Note: This HDL assay may give artificially low results in patients with liver disease. Blood Venous blood specimen / Unknown 11/04/2024 1:59 PM EDT 11/04/2024 4:22 PM EDT Priya Capellan MD LAB BLOOD ORDERABLES Final Result Performing Organization Address [facility]/ZIP Co de Phone Number [facility] [address] [place] [address] [phone] * (ABNORMAL) Basic Metabolic Panel (11/04/2024 1:59 PM EDT) Sodium 138 135 - 145 mmol/L [facility] Potassium 3.3 3.3 - 5.1 mmol/L [facility] Chloride 106 96 - 108 mmol/L [facility] Carbon Dioxide 26 22 - 29 mmol/L [facility] Anion Gap 9(L) 12 - 20 [facility] Urea Nitrogen (BUN) 10 9 - 16 mg/dL [facility] Creatinine, Serum 0.76 0.5 - 1.4 mg/dL [facility] Estimated Glomerular Filt Rate >60 [facility] Comment:Chronic Kidney Disea se: Estimated GFR < 60 mL/min/1.95c9Rvetkr Kidney Disease: Estimated GFR < 15 mL/min/1.73m2 Glucose 160(H) 60 - 115 mg/dL [facility] Calcium 8.9 8.4 - 10.2 mg/dL [facility] Blood Venous blood specimen / Unknown 11/04/2024 1:59 PM EDT 11/04/2024 4:22 PM EDT Priya Capellan MD LAB BLOOD ORDERABLES Final Result Performing Organization Address City/[facility]/ZIP Co de Phone Number [facility] [address] [place] [address] [phone] * Chlamydia/N. Gonorrhoeae RNA, TMA, Vagina (10/31/2024 11:58 AM EDT) CT PCR NOT DETECTED Not Detect. [facility] Comment:A not detected test result does [...] psychologicalconsequences. NG PCR NOT DETECTED Not Detect. [facility] Comment:A not detected test result does [...] AM EDT 10/31/2024 4:12 PM EDT Narrative [facility] - 11/02/2024 2:49 PM EDT Vaginal us Priya Capellan MD LAB MICROBIOLOGY - GENERAL ORDERABLES Final Result [facility] [address] [place] [address] [phone] from Last 3 Months Insurance [employer] [facility] [employer] [place] [id number] Care Teams Pallet Stone Positioner Relationship Specialty Start Date End Date Priya Capellan MD [address] [place] [phone] PCP - General Family Medicine 09/11/24
--- OUTSIDE RECORDS SUMMARY | 2025-01-21 09:55 | XMS_ITS | Clinical Summary ---
Author Organization [facility] Address [address] [facility] [address] [place] [phone] Phone Care Team Providers Care [employer] Partnership Rep Name Role Phone Pcp, Unknown Primary Care Provider Unavailabl e Allergies Active Allergy Reactions Criticality Noted Date Comments Milk Containing Products (Dairy) GI Upset Medications FLUoxetine (PROZAC) 20 MG capsule Take 20 mg by mouth daily. Active famotidine (PEPCID) 20 MG tablet Take 20 mg by mouth 2 (two) times a day. Active etonogestreL-et hinyl estradioL (NUVARING) 0.12-0.015 mg/[address] 1 each vaginally every 28 days. Insert vaginally and leave in place for 3 consecutive weeks, then remove for 1 week. 3 each 3 Active Family History Medical History Relation Comments No Known Problems Father Breast cancer Maternal Grandmother No Known Problems Mother Relation Status Comments Father Alive Maternal Grandmother Alive Mother Alive Social History Tobacco Use Types Packs/Day Years Used Date Smoking Tobacco: Never Smokeless Tobacco: Never Alcohol Use Standard Drinks/Week Comments Yes 0 (1 standard drink = 0.6 oz pur e alcohol) rarely Education Answer Date Recorded Are you interested in more education? Not on deanne e 10/14/2022 Are you concerned about learning? Not on file 10/14/2022 No 10/14/2022 No 10/14/2022 Digital Access Answer Date Recorded No 11/11/2022 No 11/11/2022 No 11/11/2022 Reliable internet access at home? Not on file 11/11/2022 Device with a working camera? Not on file Comments No Sex and Gender Information Value Date Recorded Sex Assigned at Not on file Legal Sex Female 3:12 PM EDT Gender Identity Not on file Sexual Orientation Not on file Last Filed Vital Signs Vital Sign Reading Time Taken Comments Blood Pressure 104/62 12/29/2020 1:30 PM EDT Pulse - - Temperature - - Respiratory Rate - - Oxygen Saturation - - Inhaled Oxygen Concentration - - Weight 54.9 kg (121 lb) 12/29/2020 1:30 PM EDT Height 160 cm (5' 3 ) 12/29/2020 1:30 PM EDT Body Mass Index 21.43 12/29/2020 1:30 PM EDT Plan of Treatment Health Maintenance Due Date Last Done Comments Adult Td,Tdap Booster 1992 DEPRESSION SCREENING 2004 PAP SMEAR 06/24/2022 06/24/2019 COVID-19 VACCINE (3 - 2023-2 5 season) 2024 11/16/2020, 10/15/2020 HEPATITIS C SCREENING Completed 12/29/2020 HIV ONE-TIME SCREENING (18-6 5 YEARS) Completed 12/29/2020 SMOKING STATUS SCREENING (On ce After 26 Yrs) Completed 12/29/2020 HEPATITIS A VACCINES Aged Out No long er eligible based on patient's age to complete this topic HIB VACCINES Aged Out No longer eligi ble based on patient's age to complete this topic MENINGOCOCCAL VACCINES (ACWY) Aged Out No longer eligible based on patient's age to complete this topic MENINGOCOCCAL VACCINES (B) Aged Out N o longer eligible based on patient's age to complete this topic PNEUMOCOCCAL VACCINES (0-49 years) Aged Out No longer eligible b ased on patient's age to complete this topic Medical Devices Not on file Procedures Procedure Name Priority Date/Time Associated Diagnosis Comments HEPATITIS C ANTIBODY, QUALITATIVE Routine 12/29/2020 2:18 PM EDT Need for hepatitis C screening test HM PAP SMEAR FOR RESULT ENTRY ONLY Routine 06/24/2019 from Last 3 Months or Most Recently Relevant to Health Maintenance Results * Hepatitis C antibody, qualitative (12/29/2020 2:18 PM EDT) HCV NON-REACTIV E NON-REACTI VE [facility] Blood 12/29/2020 2:18 PM EDT 12/29/2020 2:27 PM EDT us Florencia Hanson MD LAB BLOOD ORDERABLES Final Resul t [facility] [address] [place] [address] * PAP SMEAR FOR RESULT ENTRY ONLY (06/24/2019) Pap smear NIL us Historical Provider HEALTH MAINTENANCE Final Result from Last 3 Months or Most Recently Relevant to Health Maintenance Insurance [facility] OUT OF STATE PPO [employer] [place] OUT OF STATE PPO [place] [place] OUT OF STATE PPO [employer] [place] OUT OF STATE PPO [place] [place] OUT OF STATE PPO [employer] [place] OUT OF STATE PPO [employer] [place] OUT OF STATE PPO [employer] [place] OUT OF STATE PPO Care Teams University Partnership Rep Relationship Specialty Start Date End Date Pcp, Unknown PCP - General 10/18/20 Additional Source Comments The information contained in this document represents components of the legal health record. It is not the complete legal health record.[facility]
== END 2025-01-21 10:14 | disposition home or self-care (01) ==
LOC: HO.HPS 09:32
PROVIDERS: PCP Family Medicine; Referring Provider Family Medicine; Visit Provider Hospitalist
DX: J45.20 Mild intermittent asthma, uncomplicated (principal); J39.8 Other specified diseases of upper respiratory tract
CPT/HCPCS: 99204

== ENCOUNTER → 2025-01-21 09:31 | Outpatient (BNVA) | payer OTHER, SELFPAY | PROVIDERS: PCP Family Medicine; Referring Provider Family Medicine; Visit Provider Hospitalist | DX: J39.8 Other specified diseases of upper respiratory tract (principal); J45.20 Mild intermittent asthma, uncomplicated | CPT/HCPCS: 99202 ==

== ENCOUNTER 2025-02-10 14:23 | Outpatient (REF) | payer SELFPAY ==
--- NOTE | 2025-02-10 14:58 | MHC.AUDCO ---
Joanna was scheduled for hearing evaluation today. She reported she was under the impression she was coming for CI maintenance. Unfortunately, we do not service CIs at this facility. Joanna is a long time CI user. 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 Previously seen at [facility]. Provided Joanna with a list of options in the region for CI services.
== END 2025-02-10 14:24 | disposition home or self-care (01) ==
LOC: HO.SH 14:23
PROVIDERS: Visit Provider Family Medicine
DX: Z13.89 Encounter for screening for other disorder (principal)

== ENCOUNTER 2025-05-29 13:56 | Outpatient (AMB) | payer OTHER, SELFPAY ==
--- OUTSIDE RECORDS SUMMARY | 2025-05-26 15:00 | XMS_ITS | Encounter Summary ---
Author Organization [employer] Address [address] [facility] [address] [place] [address] Care Team Providers Care Tobacco Sampler Name Role Phone Priya Capellna MD Primary Care Provider [phone] Satya Bowles Unavailable [phone] Reason for Referral * (Routine) - Authorized Specialty Diagnoses / Procedures Referred By Contac t Referred To Contact Diagnoses Encounter for immunization Procedures COVID-19 VACCINE [phone] (Comirnaty) 19 yrs + Priya Capellan MD [address] [place] [address] Phone: tel: fax: Referral ID Status Reason Start Date Expiration Date V isits Requested Visits Authorized [id number] Authorized 05/26/2025 05/26/2026 1 1 * (Routine) - Authorized Specialty Diagnoses / Procedures Referred By Contac t Referred To Contact Diagnoses Encounter for immunization Procedures FLU VACCINE TRIVALENT [id number] (Fluarix) 19 yrs + Priya Capellan MD [address] [place] [address] Phone: tel: fax: Referral ID Status Reason Start Date Expiration Date V isits Requested Visits Authorized [id number] Authorized 05/26/2025 05/26/2026 1 1 Encounter Details Date Type Department Care Team (Late st Contact Info) Description 05/26/2025 3:00 PM EST Immunization [facility] MEDICINE [address] [place] [address] Allison Camacho RN Encounter for immunization Social History Tobacco Use Types Packs/Day Years Used Date Smoking Tobacco: Never Passive Smoke Exposure: Never Smokeless Tobacco: Never Alcohol Use Standard Drinks/Week Comments Never 0 [...] PM EDT documented as of this encounter Progress Notes * Allison Camacho RN - 05/26/2025 3:00 PM EST Pt presented for both the seasonal Flu and COVID vaccines. The Flu vaccine was given in the left deltoid and the Flu the right. The pt tolerated them both well. The pt was advised to go to the pharmacy in regards to having the HPV vaccine. documented in this encounter Plan of Treatment Upcoming Encounters Date Type Department Care Team (Late st Contact Info) Description 06/01/2025 2:30 PM EST Immunization [facility] MEDICINE [address] [place] [phone] 09/08/2025 12:45 PM EDT Office Visit [facility] ADULT DENTAL [address] [place] [phone] Sam, Lashaun [address] [place] [address] documented as of this encounter Visit Diagnoses Diagnosis Encounter for immunization documented in this encounter Additional Health Concerns Assessment Noted Time PHQ-9 Depression Total Score: 24 025 12:12 PM EDT documented as of this encounter Care Teams Tobacco Sampler Relationship Specialty Start Date End Date Priya Capellan MD [address] [place] [address] PCP - General Family Medicine 09/11/24 Satya Bowles [address] [place] [phone] Pulmonary Disease 01/22/25 documented as of this encounter
[2025-05-29 14:46] VITALS: BP 128/70; PULSE 100; O2SAT 99; BMI 23.4
--- NOTE | 2025-05-29 14:46 | MHC.OFFVIS ---
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 She had been evaluated by ENT for many years as a child. She grew up with the condition and she did well. She did require prednisone at times because of the stridor the wheezing. She also had a nebulizer back then and she does not have 1 now. She is trying to get situated in the community. The patient previously was evaluated in [place]. So for now will go ahead and start her on the initial evaluation with pulmonary function studies and a chest x-ray. The patient does respond to prednisone she rather have some on home which I think is reasonable specially since she lives far away. In addition to that will provide her with a nebulizer she can have and she can use as needed with albuterol. Budesonide may be a good option for her in the future. She also has evidence of postnasal drip and chronic rhinitis. She does have allergies. She outgrew a lot of her allergies. Although probably still having some. She does use nasal sprays and antihistamine therapy. Right now she does not feel too sick and does not feel like she needs some. She will monitor closely the significant postnasal drip Marisela that does not choke her up. And the patient follow-up in 3-4 months and will review her PFTs and chest x-ray when she returns. If any issues arise she will call for further recommendations. 05/29/2025 the patient is here for pulmonary follow-up visit. Overall the patient is feels well. She does feel the went to time where she gets her lungs are little bit more tight more wheezing. She gets more coughing. She does have a rescue inhaler that helps. Lately she has been having to use it more often typically in the winter she worries that she gets a little bit worse. We did look at her pulmonary function studies the patient does have what appears to be a reversible obstruction consistent with a diagnosis of asthma. She also has small airways disease along with some air trapping going along with the severity of her asthma. We did try to sit her air supra in the past but it did not go through. Will go ahead and start her Symbicort at this time to the pharmacy. She can use his Symbicort twice a day and then she can taper down to as needed during the summertime when her respiratory symptoms are not as bad. The patient was supposed to have a chest x-ray. Right now will hold off that she is moving to [place]. Therefore when she gets acquainted with a new provide us a new extra should get further imaging studies. She will continue with the medications as prescribed and if she has any other issues she can always call for further recommendations. [facility] Medical History (Updated 01/21/25 @ 22:07 by Satya Bowles MD) Asthma Tracheomalacia Social History Patient Tobacco Use Status: Former Tobacco user Review of Systems Const Denies fever(s) Eyes Reports no additional complaints ENT Reports hearing loss Card Denies chest pain Resp Reports stridor and Reports wheezing GI Reports no additional complaints Musc Reports no additional complaints Skin/Breast Denies rash Neuro Reports no additional complaints Endo Reports no additional complaints Aller/Immun Reports no additional complaints and Reports wheezing Physical Exam Vital Signs: Last Vital Signs Pulse 100 05/29/25 14:46 BP 128/70 05/29/25 14:46 Pulse Ox 99 05/29/25 14:46 Oxygen Delivery Method Room Air 05/29/25 14:46 BMI result Body Mass Index 23.4 Const General: comfortable HEENT Head: Yes normocephalic Neck Neck: Yes supple Chest Chest palpation & inspection: normal inspection of the chest Resp Effort & Inspection: normal respiratory effort and no stridor Auscultation: clear to auscultation bilaterally Cardio Rate: regular rate Rhythm: regular rhythm Heart sounds: S1 normal heart sound present and S2 normal heart sound present GI Palpation (GI): Soft to palpation Skin General skin exam: no rashes or lesions noted Extrem General: Yes no clubbing, cyanosis or edema Assessment & Plan Assessment & Plan (1) Asthma: Code(s): J45.909 - Unspecified asthma, uncomplicated Category: Medical Qualifiers: Asthma complication type: uncomplicated Asthma persistence: intermittent Asthma severity: mild Qualified Code(s): J45.20 - Mild intermittent asthma, uncomplicated (2) Tracheomalacia: Code(s): J39.8 - Other specified diseases of upper respiratory tract Category: Medical Plan PFTs-reversible obstruction CXR, may benefit from expiratory CAT scan of the chest in the future start Symbicort ASHLEY as needed F/U as needed, relocating to [place] Medications: New budesonide-formoterol 160-4.5 mcg/actuation (Symbicort) 2 puffs inhalation BID 10.2 grams 11RF 30 days J44.89 - Other specified chronic obstructive pulmonary disease Coding Level of Care Code Est Pt Level 4 (93822) Diagnoses Mild intermittent asthma without complication J45.20 Asthma complication type: uncomplicated Asthma persistence: intermittent Asthma severity: mild Tracheomalacia J39.8 Time Spent (min) 16
--- OUTSIDE RECORDS SUMMARY | 2025-05-29 19:22 | XMS_ITS | Encounter Summary ---
Author Organization [employer] Address [address] [place] [address] Care Team Providers Care Ball Rolling Machine Operator Name Role Phone Priya Capellan MD Primary Care Provider [phone] Satya Bowles Unavailable [phone] Encounter Details Date Type Department Care Team (Latest Contact Info) Description 05/25/2025 Travel Social History Tobacco Use Types Packs/Day [...] Info) Description 06/01/2025 2:30 PM EST Immunization [facility] MEDICINE [address] [place] [address] 09/08/2025 12:45 PM EDT Office Visit [facility] ADULT DENTAL [address] [place] [address] Sam, Lashaun [address] [place] [address] documented as of this encounter Visit Diagnoses Not on filedocumented in this encounter Additional Health Concerns Assessment Noted Time PHQ-9 Depression Total Score: 24 025 12:12 PM EDT documented as of this encounter Care Teams Ball Rolling Machine Operator Relationship Specialty Start Date End Date Priya Capellan MD [address] [place] [address] PCP - General Family Medicine 09/11/24 Satya Bowles [address] [place] [address] Pulmonary Disease 01/22/25 documented as of this encounter
--- OUTSIDE RECORDS SUMMARY | 2025-05-29 19:22 | XMS_ITS | Encounter Summary ---
Author Organization [employer] Address [address] [place] [address] Care Team Providers Care Geothermal System Installer Name Role Phone Priya Capellan MD Primary Care Provider [phone] Satya Bowles Unavailable [phone] Reason for Visit * Reason Comments Med Refill Encounter Details Date Type Department Care Team ([facility] st Contact Info) Description 04/18/2025 Refill [facility] MEDICINE [address] [place], [place] [phone] Priya Capellan MD [address] [place] [address] Social History Tobacco Use Types Packs/Day Years [...] Info) Description 06/01/2025 2:30 PM EST Immunization [facility] MEDICINE [address] [place] [address] 09/08/2025 12:45 PM EDT Office Visit [facility] ADULT DENTAL [address] [place] [address] Sam, Lashaun [address] [place] [address] documented as of this encounter Visit Diagnoses Not on filedocumented in this encounter Additional Health Concerns Assessment Noted Time PHQ-9 Depression Total Score: 24 025 12:12 PM EDT documented as of this encounter Care Teams Geothermal System Installer Relationship Specialty Start Date End Date Priya Capellan MD [address] [place] [address] PCP - General Family Medicine 09/11/24 Satya Bowles [address] [place] [address] Pulmonary Disease 01/22/25 documented as of this encounter
--- OUTSIDE RECORDS SUMMARY | 2025-05-29 19:22 | XMS_ITS | Encounter Summary ---
Author Organization [employer] Address [address] [place] [address] Care Team Providers Care Health Program Manager Name Role Phone Priya Capellan MD Primary Care Provider [phone]- [phone] Satya Bowles Unavailable [phone] Encounter Details Date Type Department Care Team ([facility] st Contact Info) Description 11/07/2024 Orders Only [facility] [address] [place], [place] [phone] Priya Capellan MD [address] [place], [place] [phone] Blood glucose elevated (Primary Dx) Social History Tobacco Use Types [...] Info) Description 06/01/2025 2:30 PM EST Immunization [facility] [address] [place] [address] 09/08/2025 12:45 PM EDT Office Visit [facility] ADULT DENTAL [address] [place] [address] Sam, Lashaun [address] [place] [address] documented as of this encounter Visit Diagnoses Diagnosis Blood glucose elevated- Primary Other abnormal glucose documented in this encounter Additional Health Concerns Assessment Noted Time PHQ-9 Depression Total Score: 24 025 12:12 PM EDT documented as of this encounter Care Teams Health Program Manager Relationship Specialty Start Date End Date Priya Capellan MD [address] [place] [address] PCP - General Family Medicine 09/11/24 Satya Bowles [address] [place] [address] Pulmonary Disease 01/22/25 documented as of this encounter
--- OUTSIDE RECORDS SUMMARY | 2025-05-29 19:22 | XMS_ITS | Encounter Summary ---
Author Organization [employer] Address [address] 7[address] [place] [address] Care Team Providers Care Storage Garage Attendant Name Role Phone Priya Capellan MD Primary Care Provider [phone]- [phone] Satya Bowles Unavailable [phone] Encounter Details Date Type Department Care Team (Latest Contact Info) Description 05/26/2025 Travel Social History Tobacco Use Types Packs/Day [...] Info) Description 06/01/2025 2:30 PM EST Immunization [facility] [address] [place] [address] 09/08/2025 12:45 PM EDT Office Visit [facility] ADULT DENTAL [address] [place] [address] Sam, Lashaun [address] [place] [address] documented as of this encounter Visit Diagnoses Not on filedocumented in this encounter Additional Health Concerns Assessment Noted Time PHQ-9 Depression Total Score: 24 025 12:12 PM EDT documented as of this encounter Care Teams Storage Garage Attendant Relationship Specialty Start Date End Date Priya Capellan MD 230 [place] [address] PCP - General Family Medicine 09/11/24 Satya Bowles 5 [place] [address] Pulmonary Disease 01/22/25 documented as of this encounter
--- OUTSIDE RECORDS SUMMARY | 2025-05-29 19:22 | XMS_ITS | Encounter Summary ---
Author Organization [employer] Address [address] [facility] 7t [place] [address] Care Team Providers Care Installation Coordinator Name Role Phone Priya Capellan MD Primary Care Provider [phone]- [phone] Satya Bowles Unavailable [phone] Reason for Referral * Consultation (Routine) - Closed Specialty Diagnoses / Procedures Referred By Contac t Referred To Contact Audiology Diagnoses Bilateral deafness Cochlear implant in place Priya Capellan MD [address] [place] [address] Phone: tel: fax: [address] Phone: tel: fax: Referral ID Status Reason Start Date Expiration Date V isits Requested Visits Authorized [id number] Closed Specialty Services Required 02/11/2025 02/11/2026 1 1 Encounter Details Date Type Department Care Team (Late st Contact Info) Description 02/11/2025 Orders Only [facility] [address] [place] [address] [phone] Priya Capellan MD [address] [place] [phone] Bilateral deafness (Primary Dx); Cochlear implant in place Social History Tobacco Use Types Packs/Day Years [...] Info) Description 06/01/2025 2:30 PM EST Immunization [facility] [address] [place] [address] 09/08/2025 12:45 PM EDT Office Visit [facility] ADULT DENTAL [address] [place] [address] Lashaun Vargas [address] [place] [address] Scheduled Referrals Name Type Priority Associated Diagnoses Orde r Schedule Referral to Audiology Outpatient Referral Routine Bilateral deafness Cochlear implant in place Expected: 02/11/2025 (Approximate), Expires: 02/11/2026 documented as of this encounter Visit Diagnoses Diagnosis Bilateral deafness- Primary Unspecified hearing loss Cochlear implant in place documented in this encounter Additional Health Concerns Assessment Noted Time PHQ-9 Depression Total Score: 24 025 12:12 PM EDT documented as of this encounter Care Teams Installation Coordinator Relationship Specialty Start Date End Date Priya Capellan MD [address] [place] [address] PCP - General Family Medicine 09/11/24 Satya Bowles [address] [place] [phone] Pulmonary Disease 01/22/25 documented as of this encounter
--- OUTSIDE RECORDS SUMMARY | 2025-05-29 19:22 | XMS_ITS | Clinical Summary ---
Author Organization [employer] Address [address] 7[address] [place] [address] Care Team Providers Care Tier In Name Role Phone Priya Capellan MD Primary Care Provider [phone]- [phone] Satya Bowles Unavailable [phone] Allergies Active Allergy Reactions Criticality Noted Date [...] wheezing. 18 g 5 11/01/19 26 Active etonogestrel-eth inyl estradiol (Nuvaring) 0.12-0.015 MG/24HR vaginal ringIndications: Family planning Insert vaginally and leave in place for 3 consecutive weeks, then remove for 1 week. 3 Ring. 3 5 Active omeprazole (PriLOSEC) [address] capsule TAKE ONE CAPSULE BY MOUTH EVERY DAY BEFORE BREAKFAST 30 capsule 3 5 Active cetirizine (ZyrTEC) 10 MG tablet TAKE ONE TABLET BY MOUTH EVERY DAY 90 tablet 5 Active busPIRone (Buspar) 5 MG tablet Take 1 tablet (5 mg) by mouth 2 times daily. 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 She had been evaluated by ENT for many years as a child. She grew up with the condition and she did well. She did require prednisone at times because of the stridor the wheezing. She also had a nebulizer back then and she does not have 1 now. Previously was evaluated in [place]. She does respond to prednisone she rather have some on home which was prescribed by pulmonology. She does have allergies. She outgrew a lot of her allergies. Although probably still having some. She does use nasal sprays and antihistamine therapy. Right now she does not feel too sick and does not feel like she needs some. She will monitor closely the significant postnasal drip -Seen by heating and ventilation engineer Dr. Bowles 01/21/25 Plan -may benefit from expiratory CAT scan of the chest in the future -ASHLEY as needed -Consider BUdesonide -F/U 3 months -CXR and PFTs ordered -albuterol sulfate 2.5 mg (3 mL) inhalation Q4H PRN 90 mL 11RF shortness of breath or wheezing 30 days -prednisone PO daily; Take 2 tabs daily x 5 days, then 1 tablet daily x 5 days 15 tabs 0RF 10 days Assessment & Plan (12/17/2024 3:37 PM EDT): [...] (polycystic ovarian syndrome) 10/31/2024 Overview (12/17/2024): Per [employer] note from 12/29/20, dx'd with PCOS (irreg periods and multicystic ovaries on u/s). No further notes or work up avaialbe. I ordere dtestosterone and DHEA. DHEA cambe back elevated. Will refer to endocrinology for further work up. -has appt scheduled with Endo 03/11/25 Assessment & Plan (12/17/2024 3:37 PM EDT): Per [employer] note from 12/29/20, dx'd with PCOS (irreg periods and multicystic ovaries on u/s). No further notes or work up avaialbe. I ordere dtestosterone and DHEA. DHEA cambe back elevated. Will refer to endocrinology for further work up. -has appt scheduled with Endo 03/11/25 Assessment & Plan (11/14/2024 10:06 AM EDT): Per [employer] note from 12/29/20, dx'd with PCOS (irreg periods and multicystic ovaries on u/s). No further notes or work up avaialbe. I ordere dtestosterone and DHEA. DHEA cambe back elevated. Will refer to endocrinology for further work up. Bilateral deafness 10/31/2024 Overview (11/03/2024): -Patient needs spot man for all visits. Please make note of this in any referrals. -has cochlear implants b/l Assessment & Plan (12/17/2024 3:37 PM EDT): -Patient needs spot man for all visits. Please make note of this in any referrals. -has cochlear implants b/l -referred to [employer] 12/17/24 Orders: Referral to Audiology; Future Assessment & Plan (11/03/2024 8:20 AM EDT): -Patient needs spot man for all visits. Please make note of [...] Encounters Date Type Department Care Team Description 05/26/2025 3:00 PM EST Immunization [facility]INE [address] [place] [address] Allison Camacho RN Encounter for immunization 05/26/2025 Travel 05/25/2025 Travel 04/18/2025 Refill [facility] [address] [place] [address] Priya Capellan MD 04/18/2025 Refill [facility] [address] [place] [address] Priya Capellan MD 04/03/2025 Refill [facility] [address] [place] [address] Ana Paula Fuller NP 03/25/2025 Telephone [facility] [address] [place] [address] Priya Capellan MD Nurse Triage 03/13/2025 Refill [facility] WALK-IN [facility]ENTER [address] [place] [address] Arlen Breaux DO 03/06/2025 3:00 PM EDT Office Visit [facility] ADULT DENTAL [address] [place] [address] Lashaun Vargas Dental calculus (Primary Dx); Dental plaque; Normal oral exam 03/06/2025 Telephone [facility] ADULT DENTAL [address] [place] [address] Lashaun Vargas from Last 3 Months Immunizations Immunization Administration Dates Next Due HepB-CpG 01/19/2025,12/17/2024 Influenza, seasonal, injectable, preservative fr ee 05/26/2025 Pfizer Covid-19 Vaccine 12+ 05/26/2025 Pneumococcal Conjugate PCV 20 12/17/2024 Social History [...] Sign Reading Time Taken Comments Blood Pressure 102/68 03/06/2025 3:16 PM EDT Pulse 75 12/17/2024 2:44 PM [...] Info) Description 06/01/2025 2:30 PM EST Immunization [facility] [address] [place] [address] 09/08/2025 12:45 PM EDT Office Visit [facility] ADULT DENTAL [address] [place], [place] [phone] Robel Vargasaris [address] [place] [address] Health Maintenance Due Date Last Done Comments Alcohol/Substance Use Screening 2004 HPV Vaccines (1 - 3-dose series) 11/24/2007 Depression Monitoring 05/03/2025 10/31/2024, 025 Dental Oral Exam 09/04/2025 03/06/2025 Dental Prophylaxis 09/04/2025 03/06/2025 SDOH Screening 10/31/2025 10/31/2024 Disability Screening 12/10/2025 12/10/2024 Family Planning (PISQ) 12/17/2025 12/17/2024 Tobacco Screening 12/17/2025 12/17/2024 Dental X-Ray: Bitewings 03/07/2026 03/06/2025 Dental X-Ray: Full Mouth 03/07/2028 03/06/2025 Cervical Cancer Screening 12/17/2029 HPV/Cotest 12/17/2029 12/17/2024 Pap Smear 12/17/2029 12/17/2024 DTaP/Tdap/Td Vaccines (2 - Td or Tdap) 11/05/2031 11/04/2021 Zoster Vaccines (1 of 2) 2042 RSV Patients and Patients Aged 60 years or older (1 - 1-dose 75+ series) 11/24/2067 HIV Screening Completed 11/04/2024 Hepatitis C Screening Completed 11/04/2024 Pneumococcal Vaccine: Pediatrics (0 to 5 Years) and At-Risk Patients (6 to 49) Years Completed 12/17/2024 Hepatitis B Vaccines Completed 01/19/2025, 12/18/19 COVID-19 Vaccine Completed 05/26/2025, , 11/16/2020, Additional history exists Influenza Vaccine Completed 05/26/2025, 03/18/2021 HIB Vaccines Aged Out No longer eligi [...] Procedure Name Priority Date/Time Associated Diagnosis Comments PERIODIC ORAL EVALUATION - ESTABLISHED PATIENT Routine 03/06/2025 3:00 PM EDT ORAL HYGIENE INSTRUCTIONS Routine 03/06/2025 3:00 PM EDT Dental calculus PROPHYLAXIS - ADULT Routine 03/06/2025 3 :00 PM EDT Dental calculus INTRAORAL - COMPLETE SERIES OF RADIOGRAPHIC IMAGES Routine 03/06/2025 3:00 PM EDT Dental calculus 9 PFM CROWN Routine 03/06/2025 12:00 AM EDT 17 EXTRACTION Routine 03/06/2025 12:00 AM EDT 16 EXTRACTION Routine 03/06/2025 12:00 AM EDT 32 EXTRACTION Routine 03/06/2025 12:00 AM EDT 1 EXTRACTION Routine 03/06/2025 12:00 AM EDT 9 ROOT CANAL Routine 03/06/2025 12:00 AM EDT HPV DNA, LOW/HIGH RISK Routine 12/17/2024 12:00 AM EDT PAP SMEAR Routine 12/17/2024 12:00 AM EDT Cervical cancer screening HEPATITIS C AB W/REFL TO HCV RNA, QN, PCR Routine 11/04/2024 1:59 PM EDT Routine screening for STI (sexually transmitted infection) HIV 1/2 ANTIGEN/ANTIBODY, FOURTH GENERATION W/RFL Routine 11/04/2024 1:59 PM EDT Routine screening for STI (sexually transmitted infection) from Last 3 Months or Most Recently Relevant to Health Maintenance Results * HPV DNA, Low/High Risk (12/17/2024 12:00 AM EDT) HPV High Risk Negative Negative [facility] HPV Genotype 16 Negative Negative [facility] HPV Genotype 18 Negative Negative [facility] Comment:HPV testing performe d at [facility] (CLIA#[id number]), [address] [place] [id number].Testing for HPV was performed using the Sherry [...] detected. 12/17/2024 12/18/2024 8:0 0 AM EDT us Priya Capellan MD LAB BLOOD ORDERABLES Final Result [facility] [address] [place] [phone] * Pap Smear (12/17/2024 12:00 AM EDT) Swab 12/17/2024 12/18/2024 8:0 0 AM EDT Narrative [facility] - 12/22/2024 3:07 PM EDT ----- ------- Name: Joanna Soria Age/Sex: 34/F : 1990 Unit#: [id number] Attend Dr: Priya Capellan MD Re12/17/24 Status: DEP [facility] ----- ------- SPEC : [id number] RECD: 12/18/24 STATUS: KENNY VALDOVINOS NUM: [id number] ROLY: 12/17/24-[address]: Priya Capellan MD ENTERED: 12/18/24 SP TYPE: Pap Smr OTHR DR: ORDERED: Pap Smear Interpretation Satisfactory for [...] and HPV testing will be performed at [facility] (CLIA #[id number]), [address] [place] [address]. Testing for HPV was performed using the [...] detected. All professional services are performed by [facility] ([address] [place] [address], [place] [address]; ; [place] #[id number]). The PAP Test is a screening procedure with the inherent possibility of both false negative and false positive results. Results should be interpreted in the context of historic and current clinical findings. Reliability of the PAP Test is enhanced by performing the test on a regular repetitive basis. ----- ------- Signed (signature on file) PERLITA Velázquez ([facility]) 12/22/24 1507 ----- ------- END OF REPORT Priya Capellan MD LAB CYTOLOGY ORDERABLES Fi nal Result [facility] [address] [place] [phone] * Hepatitis C Antibody with Reflex to HCV, RNA, Quantitative, Real-Time PCR (11/04/2024 1:59 PM EDT) Hepatitis C Antibody Nonreactive Nonreactive [facility] Comment:Antibodies to HCV no t detected; does not exclude early acuteHCV infection. Blood Venous blood specimen / Unknown 11/04/2024 1:59 PM EDT 11/04/2024 4:22 PM EDT Priya Capellan MD LAB BLOOD ORDERABLES Final Result Performing Organization Address City/[facility]/ZIP Co de Phone Number [facility] [address] [place] [phone] * HIV-1/2 Antigen and Antibodies, Fourth Generation, with Reflexes (11/04/2024 1:59 PM EDT) HIV AB/AG Nonreactive Nonreactive [facility] Comment:HIV-1 p24 Ag and/or HIV-1/HIV-2 Ab not detected.A test result that is nonreactive does not exclude thepossibility of exposure to or infection with HIV-1 and/orHIV-2. Nonreactive results in this assay for individualswith prior exposure to HIV-1 and/or HIV-2 may be due toantigen and antibody levels that are below the limit ofdetection of this assay.The [employer] HIV Ag/Ab Combo assay result andsupplemental assay results should be interpreted inconjunction with the patient's clinical presentation,history and other laboratory results. If the results areinconsistent with clinical evidence, additional testing issuggested to confirm the result. Blood Venous blood specimen / Unknown 11/04/2024 1:59 PM EDT 11/04/2024 4:22 PM EDT Priya Capellan MD LAB BLOOD ORDERABLES Final Result Performing Organization Address [facility] Co de Phone Number [facility] [address] [place] [phone] [phone] from Last 3 Months or Most Recently Relevant to Health Maintenance Insurance Jamison VARELA MAURA DRAKE [id number] [facility] PARTIAL (MEDICAID) Care Teams Tier In Relationship Specialty Start Date End Date Marilia, MD Priya [address] [place] [phone] PCP - General Family Medicine 09/11/24 Satya Bowles [address] [place] [phone] Pulmonary Disease 01/22/25
--- OUTSIDE RECORDS SUMMARY | 2025-05-29 19:22 | XMS_ITS | Encounter Summary ---
Author Organization [employer] Address [address] [place] [address] Care Team Providers Care Burnt Lime Drawer Name Role Phone Priya Capellan MD Primary Care Provider [phone]- [phone] Satya Bowles Unavailable Reason for Visit * Reason Onset Date Comments Med Refill 11/15/2024 Encounter Details Date Type Department Care Team (Late st Contact Info) Description 11/15/2024 Refill [facility] MED[facility]INE [address] [place] [address] Priya Capellan MD [address] [place] [address] Social History Tobacco Use Types Packs/Day Years [...] Info) Description 06/01/2025 2:30 PM EST Immunization [facility]INE [address] [place] [address] 09/08/2025 12:45 PM EDT Office Visit [facility] ADULT DENTAL [address] [place] [address] Lashaun Vargas [address] [place] [address] documented as of this encounter Visit Diagnoses Not on filedocumented in this encounter Additional Health Concerns Assessment Noted Time PHQ-9 Depression Total Score: 24 025 12:12 PM EDT documented as of this encounter Care Teams Burnt Lime Drawer Relationship Specialty Start Date End Date Priya Capellan MD [address] [place] [address] PCP - General Family Medicine 09/11/24 Satya Bowles [address] [place] [phone] Pulmonary Disease 01/22/25 documented as of this encounter
--- OUTSIDE RECORDS SUMMARY | 2025-05-29 19:22 | XMS_ITS | Encounter Summary ---
Author Organization [employer] Address [address] [place] [address] Care Team Providers Care Wet Wash Assembler Name Role Phone Priya Capellan MD Primary Care Provider [phone] Satya Bowles Unavailable [phone] Reason for Visit * Reason Onset Date Comments Med Refill 11/19/2024 Encounter Details Date Type Department Care Team (Late st Contact Info) Description 11/19/2024 Refill [facility] [address] [place] [address] Priya Capellan MD [address] [place] [address] Social History Tobacco Use Types Packs/Day Years [...] Info) Description 06/01/2025 2:30 PM EST Immunization [facility] [address] [place] [address] 09/08/2025 12:45 PM EDT Office Visit [facility] ADULT DENTAL [address] [place] [address] Lashaun Vargas [address] [place] [address] documented as of this encounter Visit Diagnoses Not on filedocumented in this encounter Additional Health Concerns Assessment Noted Time PHQ-9 Depression Total Score: 24 025 12:12 PM EDT documented as of this encounter Care Teams Wet Wash Assembler Relationship Specialty Start Date End Date Priya Capellan MD [address] [place] [address] PCP - General Family Medicine 09/11/24 Satya Bowles [address] [place] [phone] Pulmonary Disease 01/22/25 documented as of this encounter
== END 2025-05-29 15:23 | disposition home or self-care (01) ==
LOC: HO.HPS 13:57
PROVIDERS: Visit Provider Hospitalist
DX: J45.20 Mild intermittent asthma, uncomplicated (principal); J39.8 Other specified diseases of upper respiratory tract
CPT/HCPCS: 99214

== ENCOUNTER 2025-05-29 14:01 | Outpatient (REF) | payer OTHER, SELFPAY ==
--- NOTE | 2025-05-29 14:03 | PFT_ITS ---
Spirometry [] Lung Volumes [] Diffusion Capacity [] Methacholine Challenge [] Flow Volume Loops [] MVV [] MIP/MEP(Max inspiratory pressure/Max expiratory pressure) [] 6 Minute Walk Test [] ABG [] Interpretation [] MTDD
[2025-05-29 14:39] VITALS: PULSE 90; O2SAT 100
== END 2025-05-29 14:02 | disposition home or self-care (01) ==
LOC: HO.RESP 14:01
PROVIDERS: Visit Provider Hospitalist
DX: J45.20 Mild intermittent asthma, uncomplicated (principal); J39.8 Other specified diseases of upper respiratory tract
CPT/HCPCS: 94060; 94640; 94727; 94729; 99212